=== PATIENT | male | born 1930 | race Caucasian/White ===

== ENCOUNTER 2018-02-21 11:13 | Emergency (ER) | payer OTHER, MEDICARE ==
[2018-02-21] MEDS ORDERED: NS 0.9% 1000 ML* 1,000 ML IV ONE (11:22)
--- NOTE | 2018-02-21 11:29 | UC ---
HPI Febrile Illness - HPI Summary HPI Summary: This patient is a 87 year old M presenting to [facility] from [facility] with a chief complaint of febrile illness for the last 2 days. The patient rates the pain 6/10 in severity. Symptoms alleviated by tylenol, pt took some at 0900. Patient reports trouble urinating, dysuria, and fatigue. Patient denies LE edema, n/v/d, SOB, ABD pain, back pain, and CP. No hx pyelonephritis. 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 There is a cost concern and they declined EMS transport. - History of Current Complaint Chief Complaint: UCGU Time Seen by Provider: 02/21/18 11:20 Hx Obtained From: Patient Onset/Duration: Still Present Timing: Constant Initial Severity: Moderate Current Severity: Moderate Pain Intensity: 6 Pain Scale Used: 0-10 Numeric Alleviating Factors: OTC Medicine Associated Signs and Symptoms: Other: - dysuria and fatigue - Allergy/Home Medications Allergies/Adverse Reactions: Allergies Allergy/AdvReac Type Severity Reaction Status Date / Time No Known Allergies Allergy Verified 02/21/18 11:31 Home Medications: Home Medications Acetaminophen TAB* [Tylenol TAB*] 650 mg PO Q4H PRN 02/21/18 [History Confirmed 02/21/18] Cyanocobalamin TAB* [Vitamin B12 TAB*] 1,000 mcg PO DAILY 02/21/18 [History Confirmed 02/21/18] Mirtazapine TAB* [Remeron TAB*] 30 mg PO BEDTIME 02/21/18 [History Confirmed ] OLANzapine TAB* [Zyprexa 5 MG TAB*] 5 mg PO BEDTIME 02/21/18 [History Confirmed 02/21/18] Trospium (NF) [Sanctura (NF)] 20 mg PO BID 02/21/18 [History Confirmed 02/21/18] PMH/Surg Hx/FS Hx/Imm Hx Cardiovascular History: Hypertension Other History Of: Negative For: HIV - Family History Known Family History: Positive: Hypertension - Social History Lives: Assisted Living Alcohol Use: None Substance Use Type: None Smoking Status (MU): Never Smoked Tobacco Review of Systems Constitutional: Fever, Fatigue Genitourinary: Dysuria, Other - trouble urinating All Other Systems Reviewed And Are Negative: Yes Physical Exam - Summary Physical Exam Summary: Appearance: Well appearing, no pain distress, gait is assisted Skin: hot and dry Head/face: normal Eyes: EOMI, AMBER ENT: mucous membranes moist Neck: supple, non-tender Respiratory: lung sounds are distant Cardiovascular: RRR, pulses symmetrical Abdomen: non-tender, soft Bowel Sounds: present Musculoskeletal: normal, strength/ROM intact, tremor in the LUE Neuro: normal, sensory motor intact, A&Ox3 Triage Information Reviewed: Yes Vital Signs Reviewed: Yes Course/Dx - Course Course Of Treatment: Patient experiencing fever up to 103.5, weakness, fatigue as well as urinary symptoms with history of urinary stricture. Discussed the case with the ER physician Dr. Bland who accepts the patient to the ER. The family wishes to transport him by private vehicle. The vehicle was brought to the door and the patient was assisted into the vehicle. - Febrile Illness Differential Diagnoses: Other: - UTI,sepsis - Diagnoses Clinic Provider Diagnoses: UTI and Fever - Provider Notifications Discussed Patient Care With: Gosia Bland Time Discussed With Above Provider: 11:31 Instructed by Provider To: Other - I informed Dr. Bland of the incoming patient. Discharge - Sign-Out/Discharge Documenting (check all that apply): Patient Departure All imaging exams completed and their final reports reviewed: No Studies - Discharge Plan Condition: Fair Disposition: HOME-RECOMMEND TO ED Patient Education Materials: Urinary Tract Infection in Men (ED) Referrals: Yaritza Casillas MD [Primary Care Provider] - Additional Instructions: Go directly to the ER for care now. - Billing Disposition and Condition Condition: FAIR Disposition: Home-Recommend to ED - Attestation Statements Document Initiated by Noni: Yes Documenting Scribe: Jermaine Lee Provider For Whom Noni is Documenting (Include Credential): Miguel Coelho MD Scribe Attestation: Jermaine Zambrano, scribed for Miguel Coelho MD on 02/21/18 at 1148. Scribe Documentation Reviewed: Yes Provider Attestation: The documentation as recorded by the Jermaine varghese accurately reflects the service I personally performed and the decisions made by me, Miguel Coelho MD
[2018-02-21 11:31] VITALS: BP 125/66
== END 2018-02-21 11:35 | disposition home health service (06) ==
LOC: UCEAST 11:13
DX: N39.0 Urinary tract infection, site not specified (principal); R50.9 Fever, unspecified
CPT/HCPCS: 99202; G0463

== ENCOUNTER 2018-02-21 11:59 | Emergency (ER) | payer MEDICARE, OTHER ==
[2018-02-21 13:05] LABS: ABS Basophils 0 10^3/ul (0-0.2); ABS Eosinophils 0 10^3/ul (0-0.6); ABS Lymphocytes 0.5 10^3/ul (1.0-4.8); ABS Monocytes 0.6 10^3/ul (0-0.8); ABS Neutrophils 12.1 10^3/ul (1.5-7.7); ABS Nucleated RBC 0 10^3/ul; Eosinophil % 0.1 % (0-6); Hematocrit 41 % (42-52); Hemoglobin 13.7 g/dl (14.0-18.0); Lymphocyte % 3.6 % (25-47); Mean Corpuscular HGB Conc 33 g/dl (31-36); Mean Corpuscular Hemoglobin 30 pg (27-31); Mean Corpuscular Volume 90 fL (80-94); Mean Platelet Volume 8.2 um3 (7.4-10.4); Nucleated Red Blood Cells % 0; Platelet Count 183 10^3/ul (150-450); Red Blood Count 4.59 10^6/ul (4.00-5.40); Red Cell Distribution Width 13 % (10.5-15); White Blood Count 13.2 10^3/ul (3.5-10.8)
[2018-02-21 13:14] LABS: INR 0.94 (0.77-1.02)
[2018-02-21 13:27] LABS: EGFR Non-African American 69.7 (>60)
--- NOTE | 2018-02-21 14:44 | RAD ---
INDICATION: Fever COMPARISON: None. TECHNIQUE: Single AP portable view of the chest was obtained. FINDINGS: Image quality is compromised due to the relative inferiority of a portable chest x-ray. The heart and mediastinum exhibit normal size and contour. The lungs are grossly clear. There is no evidence of a large pleural effusion. Visualized bones are normal for the patient's age. IMPRESSION: No radiographic evidence for acute cardiopulmonary abnormality on this portable chest x-ray.
--- NOTE | 2018-02-21 15:07 | ED ---
GI/ HPI - HPI Summary HPI Summary: This patient is an 87 year old M presenting to [facility] accompanied by family with a chief complaint of difficulty urinating that began 3 days ago. The patient rates the pain 0/10 in severity. Symptoms aggravated by nothing. Symptoms alleviated by nothing. Patient reports fever. Patient denies vomiting, CP, and dysuria. - History of Current Complaint Chief Complaint: EDUrogenitalProblems Time Seen by Provider: 02/21/18 12:11 Stated Complaint: UTI Hx Obtained From: Patient Onset/Duration: Started Days Ago, Atraumatic, Still Present Timing: Constant Severity: Mild Current Severity: Mild Pain Intensity: 0 Location of Pain: None Associated Signs and Symptoms: Positive: Fever. Negative: Vomiting, Dysuria, Chest Pain Aggravating Factor(s): Nothing Alleviating Factor(s): Nothing - Allergy/Home Medications Allergies/Adverse Reactions: Allergies Allergy/AdvReac Type Severity Reaction Status Date / Time No Known Allergies Allergy Verified 02/21/18 12:07 PMH/Surg Hx/FS Hx/Imm Hx Previously Healthy: Yes Opthamlomology History: Denies: Hx Legally Blind EENT History: Denies: Hx Deafness - Surgical History Surgery Procedure, Year, and Place: urinary stricture dilation Hx Anesthesia Reactions: No Infectious Disease History: No Infectious Disease History: Denies: Traveled Outside the [place] in Last 30 Days - Family History Known Family History: Positive: Hypertension - Social History Occupation: Unemployed Lives: Assisted Living Alcohol Use: None Hx Substance Use: No Substance Use Type: Reports: None Hx Tobacco Use: No Smoking Status (MU): Never Smoked Tobacco Review of Systems Positive: Fever Negative: Chest Pain Negative: Vomiting Genitourinary: Other - Positive inability to urinate Negative: dysuria All Other Systems Reviewed And Are Negative: Yes Physical Exam - Summary Physical Exam Summary: GENERAL: Patient is a well-developed and nourished M who is lying comfortable in the stretcher. Patient is not in any acute respiratory distress. HEAD AND FACE: Normocephalic EYES: PERRLA, EOMI x 2. EARS: Hearing grossly intact. MOUTH: Oropharynx within normal limits. NECK: Supple, trachea is midline, no adenopathy, no JVD, no carotid bruit. CHEST: Symmetric, no tenderness at palpation LUNGS: Clear to auscultation bilaterally. No wheezing or crackles. CVS: Regular rate and rhythm, S1 and S2 present, no murmurs or gallops appreciated. ABDOMEN: Soft, non-tender. Bowel sounds are normal. No abdominal abnormal pulsations. EXTREMITIES: Full ROM in all major joints, no edema, no cyanosis or clubbing. NEURO: Alert and oriented x 3. No acute neurological deficits. Speech is normal and follows commands. SKIN: Dry and warm Triage Information Reviewed: Yes Vital Signs On Initial Exam: Initial Vitals Temp Pulse Resp BP Pulse Ox 99.5 F 82 16 96/54 93 02/21/18 12:07 02/21/18 12:07 02/21/18 12:07 02/21/18 12:07 02/21/18 12:07 Vital Signs Reviewed: Yes Diagnostics - Vital Signs Vital Signs Temp Pulse Resp BP Pulse Ox 02/21/18 14:35 99.0 F 02/21/18 14:00 72 16 92/54 97 02/21/18 12:12 97 02/21/18 12:07 99.5 F 82 16 96/54 93 - Laboratory Lab Results: Lab Results 02/21/18 02/21/18 02/21/18 Range/Units 12:57 12:57 12:57 WBC 13.2 H (3.5-10.8) 10^3/ul RBC 4.59 (4.00-5.40) 10^6/ul Hgb 13.7 L (14.0-18.0) g/dl Hct 41 L (42-52) % MCV 90 (80-94) fL MCH 30 (27-31) pg MCHC 33 (31-36) g/dl RDW 13 (10.5-15) % Plt Count 183 (150-450) 10^3/ul MPV 8.2 (7.4-10.4) um3 Neut % (Auto) 91.7 H (38-83) % Lymph % (Auto) 3.6 L (25-47) % Hyde % (Auto) 4.3 (0-7) % Eos % (Auto) 0.1 (0-6) % Baso % (Auto) 0.3 (0-2) % Absolute Neuts (auto) 12.1 H (1.5-7.7) 10^3/ul Absolute Lymphs (auto) 0.5 L (1.0-4.8) 10^3/ul Absolute Monos (auto) 0.6 (0-0.8) 10^3/ul Absolute Eos (auto) 0 (0-0.6) 10^3/ul Absolute Basos (auto) 0 (0-0.2) 10^3/ul Absolute Nucleated RBC 0 10^3/ul Nucleated RBC % 0 ESR 16 (0-40) mm/Hr INR (Anticoag Therapy) 0.94 (0.77-1.02) APTT 37.0 H (26.0-36.3) seconds Sodium 137 (135-145) mmol/L Potassium 4.4 (3.5-5.0) mmol/L Chloride 104 (101-111) mmol/L Carbon Dioxide 25 (22-32) mmol/L Anion Gap 8 (2-11) mmol/L BUN 14 (6-24) mg/dL Creatinine 1.01 (0.67-1.17) mg/dL Est GFR ( Amer) 84.4 (>60) Est GFR (Non-Af Amer) 69.7 (>60) BUN/Creatinine Ratio 13.9 (8-20) Glucose 129 H (70-100) mg/dL Lactic Acid (0.5-2.0) mmol/L Calcium 8.7 (8.6-10.3) mg/dL Total Bilirubin 0.70 (0.2-1.0) mg/dL AST 21 (13-39) U/L ALT 12 (7-52) U/L Alkaline Phosphatase 179 H (34-104) U/L Troponin I 0.01 (<0.04) ng/mL C-Reactive Protein 22.59 H (<8.01) mg/L B-Natriuretic Peptide ( - 100) pg/mL Total Protein 6.4 (6.4-8.9) g/dL Albumin 4.1 (3.2-5.2) g/dL Globulin 2.3 (2-4) g/dL Albumin/Globulin Ratio 1.8 (1-3) 02/21/18 02/21/18 Range/Units 12:57 12:57 WBC (3.5-10.8) 10^3/ul RBC (4.00-5.40) 10^6/ul Hgb (14.0-18.0) g/dl Hct (42-52) % MCV (80-94) fL MCH (27-31) pg MCHC (31-36) g/dl RDW (10.5-15) % Plt Count (150-450) 10^3/ul MPV (7.4-10.4) um3 Neut % (Auto) (38-83) % Lymph % (Auto) (25-47) % Hyde % (Auto) (0-7) % Eos % (Auto) (0-6) % Baso % (Auto) (0-2) % Absolute Neuts (auto) (1.5-7.7) 10^3/ul Absolute Lymphs (auto) (1.0-4.8) 10^3/ul Absolute Monos (auto) (0-0.8) 10^3/ul Absolute Eos (auto) (0-0.6) 10^3/ul Absolute Basos (auto) (0-0.2) 10^3/ul Absolute Nucleated RBC 10^3/ul Nucleated RBC % ESR (0-40) mm/Hr INR (Anticoag Therapy) (0.77-1.02) APTT (26.0-36.3) seconds Sodium (135-145) mmol/L Potassium (3.5-5.0) mmol/L Chloride (101-111) mmol/L Carbon Dioxide (22-32) mmol/L Anion Gap (2-11) mmol/L BUN (6-24) mg/dL Creatinine (0.67-1.17) mg/dL Est GFR ( Amer) (>60) Est GFR (Non-Af Amer) (>60) BUN/Creatinine Ratio (8-20) Glucose (70-100) mg/dL Lactic Acid 0.8 (0.5-2.0) mmol/L Calcium (8.6-10.3) mg/dL Total Bilirubin (0.2-1.0) mg/dL AST (13-39) U/L ALT (7-52) U/L Alkaline Phosphatase (34-104) U/L Troponin I (<0.04) ng/mL C-Reactive Protein (<8.01) mg/L B-Natriuretic Peptide 100 ( - 100) pg/mL Total Protein (6.4-8.9) g/dL Albumin (3.2-5.2) g/dL Globulin (2-4) g/dL Albumin/Globulin Ratio (1-3) Result Diagrams: 02/21/18 12:57 02/21/18 12:57 Lab Statement: Any lab studies that have been ordered have been reviewed, and results considered in the medical decision making process. - Radiology CXR Radiology Interpretation Completed By: Radiologist - CXR reveals, per radiologist, no radiographic evidence for acute cardiopulmonary abnormality on this portable chest x-ray. ED physician has reviewed this radiology report. Re-Evaluation - Re-Evaluation First Eval Re-Evaluation Time: 17:15 Change: Unchanged Comment: Pt states he is still unable to urinate GIGU Course/Dx - Course Course Of Treatment: This patient is an 87 year old M presenting to [facility] accompanied by family with a chief complaint of difficulty urinating that began 3 days ago. Physical Exam Findings: Nml. CXR reveals, per radiologist, no radiographic evidence for acute cardiopulmonary abnormality on this portable chest x-ray. Blood work and UA obtained. Labs remarkable for leukocytosis and UA shows hematuria. In the ED course the patient was given fluids and rocephein. CT scan shows right sided hydronephrosis. Patient will most likely need IR and urological intervention in the context of fever, elevated white count and hydronephrosis. Patient will be transferred to [facility] since no urologist communications department chair. Results and plan of care discussed with patient. Patient stable upon transfer. - Diagnoses Provider Diagnoses: Difficulty urinating, Hematuria, Hydronephrosis Discharge - Sign-Out/Discharge Documenting (check all that apply): Patient Departure - Discharge Plan Condition: Stable Disposition: TRANS HIGHER LVL OF CARE FAC Referrals: Yaritza Casillas MD [Primary Care Provider] - - Billing Disposition and Condition Condition: STABLE Disposition: Trans Higher Lvl of Care Fac - Attestation Statements Document Initiated by Scribe: Yes Documenting Scribe: Phuong Nielsen Provider For Whom Noni is Documenting (Include Credential): Gosia Bland MD Scribe Attestation: Phuong Zambrano, scribed for Gosia Bland MD on 02/21/18 at 1944. Scribe Documentation Reviewed: Yes Provider Attestation: The documentation as recorded by the Phuong varghese accurately reflects the service I personally performed and the decisions made by me, Gosia Bland MD
[2018-02-21] MEDS ORDERED: NS 0.9% 1000 ML* 1,000 ML IV ONE (15:08)
[2018-02-21 15:52] LABS: Urine Appearance Clear; Urine Blood 1+ (Negative); Urine Color Yellow; Urine Ketones Trace (Negative); Urine Protein Negative (Negative); Urine Red Blood Cell 3+(>10/hpf) (Absent); Urine Specific Gravity 1.014 (1.010-1.030); Urine Urobilinogen Negative (Negative); Urine White Blood Cell Trace(0-5/hpf) (Absent)
--- NOTE | 2018-02-21 19:03 | RAD ---
CLINICAL HISTORY: Fever and difficulty urinating COMPARISON: None TECHNIQUE: Noncontrast CT examination of the abdomen and pelvis from the lung bases through the initial tuberosities. FINDINGS: VISUALIZED LUNG BASES: There are hypoventilatory changes of the bilateral lung bases more severe on the right and the left. ABDOMEN AND PELVIS: Evaluation of the solid organs and vasculature is limited without intravenous contrast. The liver, spleen, pancreas and adrenal glands are grossly normal in appearance. The gallbladder is normal. There is a mild degree of right-sided hydronephrosis. The right ureter is dilated up to 1.7 cm in diameter. More distally the right ureter is nondilated. No calcifications are identified in either collecting system, ureter or the urinary bladder. The prostate measures 4.9 x 5.2 cm in the axial plane and up to 5.8 cm in the cephalocaudal dimension. The prostate is exhibiting asymmetric compression on the base of the urinary bladder towards the right. Evaluation of the gastrointestinal tract is limited without oral contrast. The small and large bowel are not distended.The partially gas-filled appendix measures 7 mm in diameter (coronal image 32). There are distal colonic diverticula but no definite inflammatory change of the distal colon characteristic of diverticulitis. There is no gross retroperitoneal or mesenteric lymphadenopathy. There is advanced tortuosity of the abdominal aorta and iliac arteries. There is moderate calcified atherosclerosis of the abdominal aorta. There is aneurysmal dilatation of the left common iliac artery measuring 1.9 cm in diameter while the right common iliac artery measures 1.6 cm in diameter. Throughout the bones there are innumerable subcentimeter hypoattenuating foci. Advanced degenerative changes of the spine includes SAB curvature scoliosis and marginal osteophyte formation. IMPRESSION: 1. There is asymmetric enlargement of the prostate gland extending into the right side of the urinary bladder with subsequent right-sided hydroureter nephrosis. 2. There are widespread subcentimeter hypoattenuating foci throughout the visualized bones which could be seen in the setting of metastatic disease or parathyroid abnormality. 3. 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
[2018-02-21] MEDS ORDERED: cefTRIAXone(*) 1 GM in NS 0.9% 50 ML* 50 ML IVPB ONE (19:27)
[2018-02-21] MEDS ORDERED: cefTRIAXone(*) 1 GM ADVAN/BAG ONE (20:43)
[2018-02-21 21:48] VITALS: BP 116/65
== END 2018-02-21 21:58 | disposition short-term general hospital (02) ==
LOC: ED 11:59
DX: R39.198 Other difficulties with micturition (principal); N13.30 Unspecified hydronephrosis; R31.9 Hematuria, unspecified; R50.9 Fever, unspecified
CPT/HCPCS: 36415; 71045; 74176; 80053; 81003; 81015; 83605; 83880; 84153; 84484; 85025; 85610; 85652; 85730; 86140; 87040; 87086; 96365; 99284; G0103; J0696

== ENCOUNTER 2018-04-07 02:58 | Emergency (ER) | payer MEDICARE, OTHER ==
--- NOTE | 2018-04-07 03:17 | ED ---
GI/ HPI - HPI Summary HPI Summary: This patient is an 87 year old M presenting to [facility] accompanied by his friend with a chief complaint of hematuria in his urine bag since 00:00. The patient rates the pain 0/10 in severity. Symptoms aggravated by nothing. Symptoms alleviated by nothing. Patients friend notes the patient had the Barker catheter first placed 5 weeks ago and has it changed last 10 days. Patient has been previously diagnosed with prostate CA and enlarged prostate. - History of Current Complaint Time Seen by Provider: 04/07/18 03:04 Stated Complaint: BLOOD IN URINE Hx Obtained From: Patient Onset/Duration: Started Hours Ago, Atraumatic Timing: Intermittent Current Severity: None Pain Intensity: 0 Associated Signs and Symptoms: Positive: Hematuria Aggravating Factor(s): Nothing Alleviating Factor(s): Nothing - Allergy/Home Medications Allergies/Adverse Reactions: Allergies Allergy/AdvReac Type Severity Reaction Status Date / Time No Known Allergies Allergy Verified 02/21/18 12:07 PMH/Surg Hx/FS Hx/Imm Hx Sensory History: Denies: Hx Legally Blind, Hx Deafness Opthamlomology History: Denies: Hx Legally Blind EENT History: Denies: Hx Deafness - Cancer History Cancer Type, Location and Year: PROSTATE CA - Surgical History Surgery Procedure, Year, and Place: urinary stricture dilation Hx Anesthesia Reactions: No Infectious Disease History: No Infectious Disease History: Denies: Traveled Outside the [place] in Last 30 Days - Family History Known Family History: Positive: Hypertension - Social History Alcohol Use: None Hx Substance Use: No Substance Use Type: Reports: None Hx Tobacco Use: No Smoking Status (MU): Never Smoked Tobacco Review of Systems Negative: Fever Negative: Epistaxis Negative: Cough Negative: Vomiting Positive: hematuria All Other Systems Reviewed And Are Negative: Yes Physical Exam - Summary Physical Exam Summary: VITAL SIGNS: Reviewed. GENERAL: Patient is an elderly MALE who is lying comfortable in the stretcher. Patient is not in any acute respiratory distress. HEAD AND FACE: No signs of trauma. No ecchymosis, hematomas or skull depressions. No sinus tenderness. EYES: PERRLA, EOMI x 2, No injected conjunctiva, no nystagmus. EARS: Hearing grossly intact. Ear canals and tympanic membranes are within normal limits. MOUTH: Oropharynx within normal limits. NECK: Supple, trachea is midline, no adenopathy, no JVD, no carotid bruit, no c- spine tenderness, neck with full ROM. CHEST: Symmetric, no tenderness at palpation LUNGS: Clear to auscultation bilaterally. No wheezing or crackles. CVS: Regular rate and rhythm, S1 and S2 present, no murmurs or gallops appreciated. ABDOMEN: Soft, non-tender. No signs of distention. No rebound no guarding, and no masses palpated. Bowel sounds are normal. EXTREMITIES: FROM in all major joints, no edema, no cyanosis or clubbing. NEURO: Alert and oriented x 3. No acute neurological deficits. Speech is normal and follows commands. SKIN: Dry and warm : Barker catheter in place. Bloody urine in urine bag. Triage Information Reviewed: Yes Vital Signs On Initial Exam: Initial Vitals Temp Pulse Resp BP Pulse Ox 98.4 F 59 14 154/81 96 04/07/18 03:06 04/07/18 03:06 04/07/18 03:06 04/07/18 03:06 04/07/18 03:06 Vital Signs Reviewed: Yes Diagnostics - Vital Signs Vital Signs Temp Pulse Resp BP Pulse Ox 04/07/18 03:06 98.4 F 59 14 154/81 96 - Laboratory Lab Statement: Any lab studies that have been ordered have been reviewed, and results considered in the medical decision making process. GIGU Course/Dx - Course Course Of Treatment: This patient is an 87 year old M with hx of prostate CA reporting hematuria in his urine bag since 00:00. Patient had the Barker catheter placed 5 weeks ago and last changed 10 days. Test results with no significant abnormalities. Urine cleared with mild irrigation. Patient will be treated with Levaquin for UTI and will be discharged home with follow up from Dr. Sylvester. In the ED course the patient was given Levaquin. The patient is agreeable with this plan. - Diagnoses Provider Diagnoses: UTI (urinary tract infection), Hematuria Discharge - Sign-Out/Discharge Documenting (check all that apply): Patient Departure - discharge home - Discharge Plan Condition: Stable Disposition: HOME Prescriptions: Levofloxacin TAB* [Levaquin TAB*] 500 mg PO DAILY #7 tab Patient Education Materials: Urinary Tract Infection in Men (ED), Hematuria (ED ) Referrals: Yaritza Casillas MD [Primary Care Provider] - Alex Sylvester MD [Medical Doctor] - 2 Days Additional Instructions: Follow up with Dr. Sylvester, urologist, in 2-3 days. Return to the emergency department with any new or worsening symptoms. - Attestation Statements Document Initiated by Scribe: Yes Documenting Scribe: Blanche Gurrola Provider For Whom Scribe is Documenting (Include Credential): Odell Garcia MD Scribe Attestation: IBlanche, scribed for Odell Garcia MD on 04/07/18 at 0412.
[2018-04-07 04:07] LABS: Urine Appearance Turbid; Urine Blood 2+ (Negative); Urine Color Red; Urine Ketones Negative (Negative); Urine Protein 2+(100 mg/dL) (Negative); Urine Red Blood Cell 3+(>10/hpf) (Absent); Urine Specific Gravity 1.015 (1.010-1.030); Urine Urobilinogen Negative (Negative); Urine White Blood Cell 1+(6-10/hpf) (Absent)
[2018-04-07] MEDS ORDERED: Levofloxacin TAB* 500 MG PO ONE (04:10)
[2018-04-07 04:55] VITALS: BP 123/69
--- NOTE | 2018-04-10 02:18 | PN ---
Progress Note - Progress Note Date of Service: 04/07/18 Note: Patient's urine culture preliminary grew pseudomonas aeruginosa 100,000 Patient was placed on Levaquin prior to discharge We will await final culture sensitivities at this time
--- NOTE | 2018-04-10 18:30 | ED ---
Progress - Progress Note Progress Note: levofloxacin effective. No further treatment at this time Course/Dx - Course Course Of Treatment: This patient is an 87 year old M with hx of prostate CA reporting hematuria in his urine bag since 00:00. Patient had the Barker catheter placed 5 weeks ago and last changed 10 days. Test results with no significant abnormalities. Urine cleared with mild irrigation. Patient will be treated with Levaquin for UTI and will be discharged home with follow up from Dr. Sylvester. In the ED course the patient was given Levaquin. The patient is agreeable with this plan. - Diagnoses Provider Diagnoses: UTI (urinary tract infection), Hematuria Discharge - Sign-Out/Discharge Documenting (check all that apply): Post-Discharge Follow Up - Discharge Plan Condition: Stable Disposition: HOME Prescriptions: Levofloxacin TAB* [Levaquin TAB*] 500 mg PO DAILY #7 tab Patient Education Materials: Urinary Tract Infection in Men (ED), Hematuria (ED ) Referrals: Yaritza Casillas MD [Primary Care Provider] - Alex Sylvester MD [Medical Doctor] - 2 Days Additional Instructions: Follow up with Dr. Sylvester, urologist, in 2-3 days. Return to the emergency department with any new or worsening symptoms. - Billing Disposition and Condition Condition: STABLE Disposition: Home
== END 2018-04-07 04:54 | disposition home or self-care (01) ==
LOC: ED 02:58
DX: N39.0 Urinary tract infection, site not specified (principal); B96.5 Pseudomonas (aeruginosa) (mallei) (pseudomallei) as the cause of diseases classified elsewhere; R31.9 Hematuria, unspecified; C61 Malignant neoplasm of prostate
CPT/HCPCS: 81003; 81015; 87077; 87086; 87186; 99282

== ENCOUNTER 2019-07-09 10:14 | Inpatient (IN) | payer MEDICARE ==
--- NOTE | 2019-07-09 10:29 | ED ---
Lower Extremity - HPI Summary HPI Summary: Pt is an 88 y/o M presenting to the ED with a chief complaint of L hip pain initially onset this morning. He lives at [place] where a requirement is to be able to ambulate, and he is currently unable to secondary to pain. He is unsure if he fell, as he cant remember. He denies other sx, including shortness of breath. - History of Current Complaint Chief Complaint: EDHipPelvisInjury Stated Complaint: GENERAL ILLNESS Time Seen by Provider: 07/09/19 10:15 Hx Obtained From: Patient Mechanism Of Injury: Unknown Onset of Pain: Hours Onset/Duration: Still Present Severity Initially: Moderate Severity Currently: Moderate Pain Intensity: 5 Pain Scale Used: 0-10 Numeric Timing: Constant, Lasting Hours Location: Is Discrete @ - R hip Associated Signs And Symptoms: Positive: Negative Aggravating Factor(s): Movement Alleviating Factor(s): Nothing Able to Bear Weight: No - Allergies/Home Medications Allergies/Adverse Reactions: Allergies Allergy/AdvReac Type Severity Reaction Status Date / Time No Known Allergies Allergy Verified 02/21/18 12:07 Home Medications: Home Medications Bicalutamide 50 mg PO DAILY 07/09/19 [History Confirmed 07/09/19] Escitalopram * [Lexapro 5 mg (NF)] 5 mg PO DAILY 07/09/19 [History Confirmed 01/18] Melatonin [Meladox] 3 mg PO BEDTIME 07/09/19 [History Confirmed 07/09/19] PMH/Surg Hx/FS Hx/Imm Hx Previously Healthy: Yes Endocrine/Hematology History: Denies: Hx Diabetes Sensory History: Denies: Hx Legally Blind, Hx Deafness Opthamlomology History: Denies: Hx Legally Blind - Cancer History Cancer Type, Location and Year: PROSTATE CA - Surgical History Surgery Procedure, Year, and Place: urinary stricture dilation Hx Anesthesia Reactions: No Infectious Disease History: No Infectious Disease History: Denies: Traveled Outside the [place] in Last 30 Days - Family History Known Family History: Positive: Hypertension - Social History Alcohol Use: None Hx Substance Use: No Substance Use Type: Reports: None Hx Tobacco Use: No Smoking Status (MU): Never Smoked Tobacco Review of Systems Negative: Shortness Of Breath Positive: Arthralgia, Decreased ROM All Other Systems Reviewed And Are Negative: Yes Physical Exam - Summary Physical Exam Summary: VITAL SIGNS: Reviewed. GENERAL: Patient is an elderly male who is lying comfortable in the stretcher. Patient is not in any acute respiratory distress. HEAD AND FACE: No signs of trauma. No ecchymosis, hematomas or skull depressions. No sinus tenderness. EYES: PERRLA, EOMI x 2, No injected conjunctiva, no nystagmus. EARS: Hearing grossly intact. Ear canals and tympanic membranes are within normal limits. MOUTH: Oropharynx within normal limits. NECK: Supple, trachea is midline, no adenopathy, no JVD, no carotid bruit, no c- spine tenderness, neck with full ROM. CHEST: Symmetric, no tenderness at palpation. LUNGS: Clear to auscultation bilaterally. No wheezing or crackles. CVS: Regular rate and rhythm, S1 and S2 present, no murmurs or gallops appreciated. ABDOMEN: Soft, non-tender. No signs of distention. No rebound, no guarding, and no masses palpated. Bowel sounds are normal. EXTREMITIES: FROM in all major joints, no edema, no cyanosis or clubbing. NEURO: Alert and oriented x 3. No acute neurological deficits. Speech is normal and follows commands. SKIN: Dry and warm, pale Triage Information Reviewed: Yes Vital Signs On Initial Exam: Initial Vitals Temp Pulse Resp BP Pulse Ox 97.2 F 87 18 127/82 91 07/09/19 10:18 07/09/19 10:18 07/09/19 10:18 07/09/19 10:18 07/09/19 10:18 Vital Signs Reviewed: Yes Procedures - Sedation Patient Received Moderate/Deep Sedation with Procedure: No Diagnostics - Vital Signs Vital Signs Temp Pulse Resp BP Pulse Ox 07/09/19 10:18 97.2 F 87 18 127/82 91 - Laboratory Result Diagrams: 07/09/19 10:35 07/09/19 10:35 Lab Statement: Any lab studies that have been ordered have been reviewed, and results considered in the medical decision making process. - Radiology Hip/Pelvis XR Radiology Interpretation Completed By: Radiologist Summary of Radiographic Findings: 1. TRANSVERSE, DISPLACED, ANGULATED FRACTURE OF THE LEFT FEMORAL NECK. 2. POSSIBLE OSSEOUS METASTATIC DISEASE. ED physician has reviewed this report. Lower Extremity Course/Dx - Course Assessment/Plan: Pt is an 88 y/o M presenting to the ED with a chief complaint of L hip pain initially onset this morning. He lives at [place] where a requirement is to be able to ambulate, and he is currently unable to secondary to pain. He is unsure if he fell, as he cant remember. He denies other sx, including shortness of breath. In the ED course the patient was placed in a aerial crop duster, IV access was obtained. Blood test w/o a significant abnormality except for slight anemia with hemoglobin 9.5 and hematocrit 28, ESR 70, BUN is 25, glucose 197, lactic acid is 2.6, CRP is 100 and AST is 56. Patient was given IV fluids for dehydration. In the physical exam the patient has decreased range of motion of the left hip and tenderness to palpation. The patient doesnt have any shortening of the left lower extremity or any deformity. X-ray of the left hip and pelvis impression: Transverse and displaced angulated fracture of the left femoral neck. Possible osseous metastatic disease. I discussed the case with Dr. Will from orthopedics and he will consult for this patient. I discussed the case with Dr. Billings from the hospitalist services and she accepted the patient for admission. - Diagnoses Differential Diagnosis/HQI/PQRI: Positive: Arthritis, Bursitis, Fracture (Closed ), Sprain, Strain Provider Diagnoses: Hip fracture, Dehydration Discharge ED - Sign-Out/Discharge Documenting (check all that apply): Patient Departure - Discharge Plan Condition: Stable Disposition: ADMITTED TO [facility] - Billing Disposition and Condition Condition: STABLE Disposition: Admitted to [facility] - Attestation Statements Document Initiated by Noni: Yes Documenting Scribe: Sarah Wan Provider For Whom Noni is Documenting (Include Credential): Roly Segura MD. Scribe Attestation: Sarah Zambrano, scribed for Roly Segura MD. on 07/09/19 at 1852. Scribe Documentation Reviewed: Yes Provider Attestation: The documentation as recorded by the Sarah varghese accurately reflects the service I personally performed and the decisions made by me, Roly Segura MD. Status of Scribe Document: Viewed Consult Consult: 1203 - I spoke with Dr. Billings about the pt's present condition who will come to the ED to evaluate the pt for admission. 1206 - I spoke with Dr. Will who will consult with the pt.
[2019-07-09 10:44] LABS: Hematocrit 28 % (42-52); Hemoglobin 9.5 g/dL (14.0-18.0); Mean Corpuscular HGB Conc 34 g/dL (31-36); Mean Corpuscular Hemoglobin 32 pg (27-31); Mean Corpuscular Volume 94 fL (80-94); Platelet Count 168 10^3/uL (150-450); Red Blood Count 2.99 10^6 /uL (4.18-5.48); Red Cell Distribution Width 20 % (10-15); White Blood Count 9.5 10^3/uL (3.5-10.8)
[2019-07-09 11:00] LABS: C Reactive Protein 100.59 mg/L (<8.01)
[2019-07-09 11:59] LABS: Albumin 3.8 g/dL (3.2-5.2); Albumin/Globulin Ratio 1.5 (1-3); Calcium 8.4 mg/dL (8.6-10.3); EGFR African American 81.4 (>60); EGFR Non-African American 67.2 (>60); Globulin 2.5 g/dL (2-4); Polychromasia 2+; Potassium 4.2 mmol/L (3.5-5.0); Total Bilirubin 0.8 mg/dL (0.2-1.0); Total Protein 6.3 g/dL (6.4-8.9)
[2019-07-09 12:00] LABS: ABS Lymphocytes 0.9 10^3/ul (1.0-4.8); ABS Monocytes 0.6 10^3/ul (0-0.8); ABS Neutrophils 7.9 10^3/ul (1.5-7.7); Eosinophil % 0.2 %; Lymphocyte % 9.3 %; Nucleated Red Blood Cells % 0.2
[2019-07-09 12:08] LABS: Erythrocyte Sed Rate 70 mm/Hr (0-19)
[2019-07-09] MEDS ORDERED: NS 0.9% 1000 ML** 1,000 ML IV ONE (12:23)
[2019-07-09] MEDS ORDERED: oxyCODONE/Acetamin 5/325 MG* TAB PO PRN (12:51)
[2019-07-09] MEDS ORDERED: NS 0.9% 1000 ML** 1,000 ML IV SCH ×2 (13:00→18:15)
[2019-07-09] MEDS ORDERED: Senna TAB 8.6 mg* TAB PO PRN (13:04)
[2019-07-09] MEDS ORDERED: Polyethylene Glycol 3350* 17 GM PACKET PO PRN (13:05)
--- NOTE | 2019-07-09 14:51 | HP ---
CC: Dr. Casillas * [facility] MEDICINE HISTORY AND PHYSICAL: DATE OF ADMISSION: 07/09/19 PRIMARY CARE PHYSICIAN: Dr. Casillas. ATTENDING PHYSICIAN: Dr. Elsa Billings * (dictation provided by Hope Nathan NP ). CHIEF COMPLAINT: Left hip pain. HISTORY OF PRESENT ILLNESS: Mr. Bowers is an 88-year-old male with a past medical history of dementia, schizoid personality disorder, anxiety, and prostate cancer, who presents to the hospital today from [place] with concern for 10 days of pain in left lower extremity, now with inability to ambulate. Mr. Bowers has dementia with no clear recollection of recent events. The HPI is obtained from his power of claim attorney Adrián Boyle and from the record from [place]. Per the report, Mr. Bowers has been complaining of left hip pain for about 10 days. He was given a walker to use and was doing well with that, walking back and forth to dining [employer]onez at [place]. The patient was still able to ambulate as of yesterday. As of today, he was not able to bear weight on the left leg and was placed into a wheelchair. However, he was evidencing pain even with attempting to push himself in the wheelchair with his feet and therefore he was brought to the emergency room for evaluation. His power of claim attorney is here with him today at the bedside, states otherwise he is at baseline in terms of his mentation and there has been no other reported complaints from Mr. Bowers or reported to the power of claim attorney by the staff at [place]. Mr. Bowers denies falling and there is no record of him falling at [place]. Mr. Bowers does have a history of prostate cancer, for which he is following with Dr. Sylvester and there has been some concern for rising PSA and question of metastatic disease. Mr. Boyle states that there is no intention of doing any aggressive treatment for Mr. Bowers for prostate cancer. In the emergency room, Mr. Bowers had a hip x-ray that showed concern for a fracture to the left hip described as "transverse displaced angulated fracture. " There is also note of possible osseous metastatic disease. Dr. Will was called regarding the potential for surgical intervention. The patient's labs are significant for a slightly elevated lactic acidosis of 2.6. He also has an elevated ESR and CRP at 70 and 100 respectively. His alkaline phosphatase is elevated at 2877, but his AST and ALT are essentially normal. He shows an anemia which is slightly worse than baseline with hemoglobin of 9.5. His vital signs are stable. He is afebrile. He has no leukocytosis. PAST MEDICAL HISTORY: 1. Dementia. 2. History of prostate cancer. 3. Schizoid personality disorder. 4. Generalized anxiety disorder. 5. Vitamin B deficiency. 6. Insomnia. OUTPATIENT MEDICATIONS: 1. Melatonin 3 mg p.o. at bedtime. 2. Escitalopram 5 mg p.o. daily. 3. Casodex 50 mg p.o. daily. 4. Tylenol p.r.n. 5. Olanzapine 5 mg p.o. at bedtime. 6. Mirtazapine 30 mg p.o. at bedtime. 7. Cyanocobalamin 1000 mcg p.o. daily. ALLERGIES: No known drug allergies. FAMILY HISTORY: Unobtainable from the patient today, he has memory problems. SOCIAL HISTORY: There is no report anywhere in the record of alcohol, tobacco, or drug use. The patient lives at [place] and his friend and power of claim attorney is Adrián Boyle who is at the bedside today. REVIEW OF SYSTEMS: A 14-point review of systems was completed with Mr. Bowers and all those not mentioned above were negative, although of course his memory is impaired. PHYSICAL EXAMINATION GENERAL: Mr. Bowers is sitting on the bed with his friend Adrián at the bedside. He is in no acute distress. VITAL SIGNS: Temperature 97.2, pulse rate 84, respiratory rate 18, O2 saturation 92% on room air, blood pressure 130/76. LUNGS: Clear to auscultation bilaterally with no accessory muscle use and good aeration. HEART: S1, S2. No murmur, rub, or gallop and irregular. ABDOMEN: Soft, nontender with bowel sounds positive x4. EXTREMITIES: No cyanosis or edema. NEURO: He is alert. He is oriented to himself. He converses pleasantly, but is unable to offer any reliable information and is aware of his memory loss. He moves all extremities equally except for that left leg which is limited by pain. His face is symmetrical. The extraocular movements are intact. SKIN: Intact. DIAGNOSTIC STUDIES/LAB DATA: WBC 9.5, hemoglobin 9.5, hematocrit 28, platelet count 168, ESR 70. Sodium 135, potassium 4.2, chloride 101, serum bicarbonate 24, BUN 25, creatinine 1.04, glucose 197, lactic acid 2.6, calcium 8.4. AST 56 , ALT 22, alk phos 2877, CRP 100.59. The hip x-rays as read above and there is an EKG which shows a sinus rhythm with multiple PACs and PVCs. There is no evidence of ischemia there. ASSESSMENT AND PLAN: Mr. Bowers is an 88-year-old male with past medical history of dementia from the memory care unit at [place], as well as a history for prostate cancer with concern for progression and possible metastatic disease, who presents to the hospital with concern for 10 days of left leg pain, found to have a left hip fracture. Our plans are for inpatient admission as I expect his length of stay to be greater than 2 days for the followin. Left hip pain: The patient has been found to have a left hip fracture. I did review the x-ray with Dr. Will here in the ED today. Dr. Will does not note from the x-ray that there seems to be any significant metastatic or osseous disease where the fracture is located, but primarily seems to be present in the symphysis pubis. Dr. Will feels that surgical intervention would be effective and has offered that to the patient and his power of claim attorney with plans to anticipate going to OR on Thursday. The patient has no known history of cardiac disease or pulmonary disease. He was ambulatory, though not obtaining an activity level greater than 4 METS at [place] prior to developing left hip pain. His EKG shows no overt evidence of ischemia. He has no risk factors noted on the RCRI risk index calculator and therefore would have a 0.4% risk of potential cardiac problem in an around at the time of surgery. He is medically optimized to proceed with surgery. He does have multiple laboratory abnormalities including an elevated ESR, CRP, alk phos. I think all this is related to prostate cancer. In terms of evaluation for his elevated CRP and ESR, we are awaiting urinalysis (nursing staff have been instructed to bladder scan patient if no urine output) and chest x- ray, but the patient has no symptoms to suggest infection. The patient will have pain medications p.r.n. with a bowel regimen. I would also note the patient will need a Snow catheter for surgery and consideration should be given to reaching out to Urology to alert them that snow placement assistance will likely be needed. 2. Elevated ESR and CRP as per above. Again, we are awaiting the urinalysis and chest x-ray. He is afebrile. There is no leukocytosis. These elevations are likely reflective of metastatic prostate cancer. 3. History of prostate cancer. Continue Casodex. 4. History of schizoid personality disorder and anxiety. Continue Lexapro and olanzapine. 5. DVT prophylaxis with heparin subcu. 6. Code status is DNR and MOLST form has been completed. TIME SPENT: Approximately 60 minutes was spent on the admission of this patient , more than half the time was spent with the patient at the bedside reviewing the events leading up to this hospitalization, performing the physical examination, and reviewing the plan of care. HOPE NATHAN NP [id number]/[facility] #: [id number] [place]
[2019-07-09] MEDS: OLANzapine TAB* 5 MG PO SCH (22:34)
[2019-07-09] MEDS: Heparin VIAL(*) 5000 UNITS/ML VIAL (FIVE THOUSAND) SUBCUT SCH (22:35)
[2019-07-09] MEDS: Melatonin 3 MG TAB PO SCH (22:35)
[2019-07-09] MEDS: Mirtazapine TAB* 15 MG PO SCH (22:42)
[2019-07-10 06:10] LABS: ABS Monocytes 0.7 10^3/ul (0-0.8); ABS Neutrophils 6.7 10^3/ul (1.5-7.7); Eosinophil % 0.5 %; Hematocrit 25 % (42-52); Hemoglobin 8.6 g/dL (14.0-18.0); Lymphocyte % 12.3 %; Mean Corpuscular HGB Conc 35 g/dL (31-36); Mean Corpuscular Hemoglobin 32 pg (27-31); Mean Corpuscular Volume 93 fL (80-94); Mean Platelet Volume 6.9 fL (7.4-10.4); Nucleated Red Blood Cells % 0.1; Platelet Count 141 10^3/uL (150-450); Red Blood Count 2.65 10^6 /uL (4.18-5.48); Red Cell Distribution Width 20 % (10-15); White Blood Count 8.4 10^3/uL (3.5-10.8)
[2019-07-10] MEDS: Heparin VIAL(*) 5000 UNITS/ML VIAL (FIVE THOUSAND) SUBCUT SCH ×3 (06:13→20:51)
[2019-07-10 06:22] LABS: Anion Gap 8 mmol/L (2-11); BUN/Creatinine Ratio 26.8 (8-20); Blood Urea Nitrogen 22 mg/dL (6-24); CO2 Carbon Dioxide 24 mmol/L (22-32); Calcium 8.3 mg/dL (8.6-10.3); Chloride 105 mmol/L (101-111); EGFR Non-African American 88.5 (>60); Glucose 124 mg/dL (70-100); Potassium 3.4 mmol/L (3.5-5.0); Sodium 137 mmol/L (135-145)
[2019-07-10] MEDS ORDERED: Potassium Chlor TAB* 20 MEQ TAB.ER PO ONE (07:32)
[2019-07-10 08:36] LABS: % Iron Saturation 11 % (15-55); Iron 33 ug/dL (50-212); Total Iron Binding Capacity 307 mcg/dL (250-450); Transferrin 219 mg/dL (203-362)
[2019-07-10 08:56] LABS: Ferritin 863.9 ng/mL (24-336)
[2019-07-10] MEDS: Escitalopram * 5 MG TAB PO SCH (10:05)
[2019-07-10] MEDS: Docusate CAP* 100 MG PO SCH (10:05)
[2019-07-10] MEDS: BICALUTAMIDE 50 MG PO SCH (10:05)
--- NOTE | 2019-07-10 10:25 | ECHO ---
*[facility]* [place] [address] Fax #: [phone] Transthoracic Echocardiogram Patient: Whit Bowers : 1930 Study Date: 07/10/2019 Age: 88 Gender: M HR: 92 bpm Height: 70 in /177.8 cm BSA: 1.78 m^2 Weight: 136.7 lb /62.1 kg BMI: 19.7 kg/m^2 *Director Of Market Research: Lori Forte [facility] *Referring Physician: * Elsa Billings *Reading Physician: * Richie Root MD Indications: Congestive Heart Failure. History: Dementia, schizoid personality disorder. Conclusions Summary: - Left ventricle: The cavity size is normal. Wall thickness is mildly increased. Systolic function is normal. The estimated ejection fraction is 60-65%. Doppler parameters are consistent with abnormal left ventricular relaxation (grade 1 diastolic dysfunction). - Right atrium: The atrium is moderately dilated. - Mitral valve: There is mild regurgitation. - Tricuspid valve: There is trace to mild regurgitation. - Pericardium, extracardiac: A trace to small pericardial effusion is identified. There is no evidence of hemodynamic compromise. There is a small right pleural effusion and a left pleural effusion. Study data: Transthoracic echocardiogram. Procedure: Transthoracic echocardiography was performed. Image quality was fair. The study was technically limited due to restricted patient mobility. Complete 2D, spectral Doppler, and color flow Doppler. Location: Bedside. Patient status: Inpatient. Patient room number: 349. No prior study is available for comparison. Rhythm: Normal sinus rhythm with PAC's. Findings Left ventricle: The cavity size is normal. Wall thickness is mildly increased. Systolic function is normal. The estimated ejection fraction is 60-65%. Wall motion is normal; there are no regional wall motion abnormalities. Doppler parameters are consistent with abnormal left ventricular relaxation (grade 1 diastolic dysfunction). Right ventricle: The cavity size is normal. Systolic function is normal. Left atrium: The atrium is normal in size. Right atrium: The atrium is moderately dilated. Mitral valve: The leaflets are mildly thickened. There is no evidence of stenosis. There is mild regurgitation. Aortic valve: The valve is trileaflet. The leaflets are mildly thickened. There is no evidence of stenosis. There is no significant regurgitation. Tricuspid valve: The leaflets are normal thickness. There is no evidence of stenosis. There is trace to mild regurgitation. Pulmonic valve: The leaflets are normal thickness. There is no evidence of stenosis. There is trace regurgitation. Pericardium: A trace to small pericardial effusion is identified. There is no evidence of hemodynamic compromise. There is a small right pleural effusion and a left pleural effusion. Pulmonary arteries: Systolic pressure can not be accurately estimated. Systemic veins: Inferior vena cava: The vessel is dilated. There is (>= 50%) respiratory change in the IVC dimension. Measurements Left ventricle Value Ref Aortic valve Value Ref JESSE, LAX 4.6 cm 4.2 - 5.8 Rodrigo diam, ED 2.1 cm ---- ESD, LAX 3.2 cm 2.5 - 4.0 Peak v, S 1.39 m/sec ---- FS, LAX 31 % 25 - 43 VTI, S 28.6 cm ---- PW, ED, LAX (H) 1.1 cm 0.6 - 1.0 Mean grad, S 4.0 mm Hg ---- E', med rodrigo, TDI 9.5 cm/sec >=7.0 Peak grad, S 8.0 mm Hg ---- E/e', med rodrigo, 11 TDI Mitral valve Value Ref Peak E 1.03 m/sec ---- LVOT Value Ref Peak A 0.53 m/sec ---- Peak peter, S 1.04 m/sec Decel time 124 ms ---- Mean grad, S 2 mm Hg Peak grad, D 4.2 mm Hg ---- Peak E/A ratio 1.9 ---- Ventricular septum Value Ref IVS, ED (H) 1.1 cm 0.6 - 1.0 Pulmonic valve Value Ref Peak v, S 0.91 m/sec ---- Right ventricle Value Ref Peak grad, S 3.0 mm Hg ---- JESSE, LAX 2.1 cm Aortic root Value Ref Left atrium Value Ref Root diam 3.2 cm <4.0 AP dim, ES 3.60 cm 3.00 - Root max diam, ED 3.2 cm <4.0 4.00 ML dim, A4C 4.1 cm Ascending aorta Value Ref SI dim, A4C 5.0 cm AAo AP diam, S 2.7 cm ---- AAo AP diam/bsa, S 1.5 cm/m^2 ---- Right atrium Value Ref SI dim, ES (H) 6.0 cm 3.4 - 5.3 Inferior vena cava Value Ref ML dim, ES, A4C 4.3 cm 2.6 - 4.4 Diam 2.4 cm ---- Estimated RAP 8 mm Hg Legend: (L) and (H) anastacia values outside specified reference range. Prepared and electronically signed by Richie Root MD 07/10/2019 10:23
--- NOTE | 2019-07-10 13:09 | PN ---
Progress Note - Progress Note Date of Service: 07/10/19 Note: 88 yo male, h/o prostate CA and dementia, resident at [place], had complained of increasing left hip pain. X-rays taken at [facility] were read as negative, but he developed a shortened, externally rotated left leg. X-rays here showed a displaced femoral neck fracture. Dr. Casillas and I spoke yesterday about him and I ordered a CT of the hip. Official report is that it is likely a pathological fracture. I do agree. Just spoke with the patient and his proxy about surgery, not doing surgery and hospicare. The concern is that the surgery can fix the hip, but the cancer continues its course and he has a significant decline similar to how things have been going these past few weeks. Dr. Casillas has spoken to them in the past about hospicare and they are interested. I also spoke with Drt. Casillas today and she agrees with the plan. I also discussed with them that surgery is still an option in the future, so if the pain relief is inadequate, or things turn around, we still can do things to fix the hip.
[2019-07-10 13:53] LABS: Urine Appearance Turbid; Urine Bilirubin Negative (Negative); Urine Blood 2+ (Negative); Urine Color Amber; Urine Glucose Negative (Negative); Urine Ketones Negative (Negative); Urine Nitrite Negative (Negative); Urine Protein Negative (Negative); Urine Specific Gravity 1.018 (1.010-1.030); Urine Urobilinogen Negative (Negative)
[2019-07-10 13:55] LABS: Urine Bacteria Absent (Absent); Urine Red Blood Cell 2+(6-10/hpf) (Absent); Urine Squamous Epithelial Cell Present (Absent); Urine White Blood Cell 1+(6-10/hpf) (Absent)
--- NOTE | 2019-07-10 16:02 | PN ---
Subjective Date of Service: 07/10/19 Interval History: Patient has no complains. He is interactive but confused, reported pain well controlled. Had a goal of care discussion with patient and patient's health care proxy Adrián Boyle this noon. Whit is a 88 y/o PMH Dementia, schizoid personality, anxiety, progressive prostate cancer, presented with a hip fracture, confirmed by CT pelvis likely pathological pelvic fracture with possible tumor mass in left iliopsoas. We discussed about the above CT scan findings. We also discussed about limited interventions about this fracture in the context of his tumor spreading, and guarded prognosis with his overall state. Patient had limited understanding despite explaining due to his dementia, he kept saying "I am not pleasant with it". His health care proxy Adrián does understand it well, and ask questions that reflect great understanding. We discussed about hospice placement to make his rest of life comfortable. Option of going [place] hosp[place] was proposed. We will place a consult for hospice tomorrow to give them more information. Both of them appreciate the input from us. Objective Active Medications: Acetaminophen (Tylenol Tab*) 650 mg PO Q4H PRN PRN Reason: PAIN Bicalutamide (Casodex (Nf)) 50 mg PO DAILY [facility]; Protocol Last Admin: 07/10/19 10:05 Dose: 50 mg Docusate Sodium (Colace Cap*) 100 mg PO DAILY [facility] Last Admin: 07/10/19 10:05 Dose: 100 mg Escitalopram Oxalate (Lexapro *) 5 mg PO DAILY [facility]; Protocol Last Admin: 07/10/19 10:05 Dose: 5 mg Heparin Sodium (Porcine) (Heparin Vial(*)) 5,000 units SUBCUT Q8HR AUTUMN Last Admin: 07/10/19 14:52 Dose: 5,000 units Melatonin (Melatonin) 3 mg PO BEDTIME AUTUMN Last Admin: 07/09/19 22:35 Dose: 3 mg Mirtazapine (Remeron Tab*) 30 mg PO BEDTIME AUTUMN Last Admin: 07/09/19 22:42 Dose: 30 mg Olanzapine (Zyprexa Tab*) 5 mg PO BEDTIME AUTUMN Last Admin: 07/09/19 22:34 Dose: 5 mg Oxycodone/Acetaminophen (Percocet 5/325 Tab*) 1 tab PO Q4H PRN PRN Reason: PAIN - MODERATE Oxycodone/Acetaminophen (Percocet 5/325 Tab*) 2 tab PO Q4H PRN PRN Reason: PAIN - SEVERE Polyethylene Glycol/Electrolytes (Miralax (17 Gm Dose Charlie)) 17 gm PO DAILY PRN PRN Reason: CONSTIPATION Senna (Senokot 8.6 Mg Tab*) 1 tab PO DAILY PRN PRN Reason: CONSTIPATION Vital Signs - 8 hr 07/10/19 07/10/19 07/10/19 08:00 11:31 15:30 Temperature 98.9 F 99.7 F Pulse Rate 85 77 Respiratory 16 16 16 Rate Blood Pressure 123/54 117/44 (mmHg) O2 Sat by Pulse 94 95 Oximetry Oxygen Devices in Use Now: None Exam: Appearance: age appropriate appearance, not in NAD, alert, demented Ears/Nose/Mouth/Throat: Clear Oropharnyx, Mucous Membranes Moist Respiratory: Symmetrical Chest Expansion and Respiratory Effort, clear on auscultation Cardiovascular: NL Sounds; No Murmurs; No JVD, RRR Abdominal: NL Sounds; No Tenderness; No Distention, No Hepatosplenomegaly Extremities: No Edema Neurological: Alert, not oriented. Moving all 4 limbs. Result Diagrams: 07/10/19 06:00 07/10/19 06:00 Assess/Plan/Problems-Billing Assessment: Whit Bowers is a 88yo male [place] resident with history of progressive prostate cancer, dementia, schizoid personality disorder, anxiety, presented with left LL for 10/05, found to have left hip pathological fracture likely due to metastatic prostate cancer. - Patient Problems (1) Hip fracture, pathological Current Visit: Yes Status: Acute Code(s): M84.459A - PATHOLOGICAL FRACTURE, HIP, UNSP, INIT ENCNTR FOR FRACTURE SNOMED Code(s): 547660126 Comment: - left hip pathological fracture due to metastatic prostate cancer - appreciate surgical team input, family decided not for surgery and plan for hospice care after care goal discussion; surgery is still an option if pain relief not adequate or things turn around - pain control with oxycodone for now (2) Prostate cancer Current Visit: Yes Status: Acute Code(s): C61 - MALIGNANT NEOPLASM OF PROSTATE SNOMED Code(s): 849722091 Comment: - progressive prostate cancer with increasing PSA and bone mets - likely metastatic cancer - patient is not a good candidate for surgeries or chemos. he is already on Bicalutamide which is a hormone therapy. (3) Dementia Current Visit: Yes Status: Acute Code(s): F03.90 - UNSPECIFIED DEMENTIA WITHOUT BEHAVIORAL DISTURBANCE SNOMED Code(s): 52202321 Comment: - stable. continue to monitor (4) Anxiety Current Visit: Yes Status: Acute Code(s): F41.9 - ANXIETY DISORDER, UNSPECIFIED SNOMED Code(s): 02414988 Comment: - on escitalopram and olanzapine (5) Need for comfort care Current Visit: Yes Status: Acute Code(s): OCF6016 - SNOMED Code(s): 108312461 Comment: - refer comfort care consult tomorrow and discuss about hospice care options. Status and Disposition: Inpatient Medicine. Attestation Attending/Supervising Physician Comment: Agree with resident note, and appreciate family discussion regarding difficult predicament of pathologic fracture Essentially: 88M PMH dementia, schizoid personality disorder, anxiety, and prostate cancer, presents with pathologic left hip fracture with progression of disease from prostate cancer and poor options for treatment, though still could consider palliative fracture care. Will discuss with Dr. Casillas tomorrow -
[2019-07-10] MEDS: oxyCODONE/Acetamin 5/325 MG* TAB PO PRN (18:54)
[2019-07-10] MEDS: Mirtazapine TAB* 15 MG PO SCH (20:50)
[2019-07-10] MEDS: OLANzapine TAB* 5 MG PO SCH (20:51)
[2019-07-10] MEDS: Melatonin 3 MG TAB PO SCH (20:51)
[2019-07-10] MEDS: Acetaminophen TAB* 325 MG PO PRN (21:04)
[2019-07-11] MEDS: Heparin VIAL(*) 5000 UNITS/ML VIAL (FIVE THOUSAND) SUBCUT SCH ×3 (05:46→22:50)
--- NOTE | 2019-07-11 06:24 | PN ---
Hospitalist Progress Note Date of Service: 07/11/19 Called from nursing staff received about difficulty swallowing. It was reported that he had been having trouble with liquids. Will make npo and obtain a swallowing eval
--- NOTE | 2019-07-11 07:15 | PN ---
Subjective Date of Service: 07/11/19 Interval History: HD 3 on 07/11 Overnight: Difficulty in swallowing. Ordered swallow evaluation Vitals: stable on 2L OF OXYGEN Patient oriented to self but not to time and place. patient says he is feeling fine and does not complain of pain. He says he has cough while swallowing. When asked why is he here in the hospital he says he does not know but says "Oh I forgot but I now it". Palliative care consult today. Discussed with PCP about goals of care and need of palliative surgery. Will weigh in oncology input. Patient will need SNF with hospice care. care worker and CM aware. Objective Active Medications: Acetaminophen (Tylenol Tab*) 650 mg PO Q4H PRN PRN Reason: PAIN Last Admin: 07/10/19 21:04 Dose: 650 mg Bicalutamide (Casodex (Nf)) 50 mg PO DAILY [facility]; Protocol Last Admin: 07/10/19 10:05 Dose: 50 mg Docusate Sodium (Colace Cap*) 100 mg PO DAILY [facility] Last Admin: 07/10/19 10:05 Dose: 100 mg Escitalopram Oxalate (Lexapro *) 5 mg PO DAILY [facility]; Protocol Last Admin: 07/10/19 10:05 Dose: 5 mg Heparin Sodium (Porcine) (Heparin Vial(*)) 5,000 units SUBCUT Q8HR [facility] Last Admin: 07/11/19 05:46 Dose: 5,000 units Melatonin (Melatonin) 3 mg PO BEDTIME AUTUMN Last Admin: 07/10/19 20:51 Dose: 3 mg Mirtazapine (Remeron Tab*) 30 mg PO BEDTIME AUTUMN Last Admin: 07/10/19 20:50 Dose: 30 mg Olanzapine (Zyprexa Tab*) 5 mg PO BEDTIME AUTUMN Last Admin: 07/10/19 20:51 Dose: 5 mg Oxycodone/Acetaminophen (Percocet 5/325 Tab*) 1 tab PO Q4H PRN PRN Reason: PAIN - MODERATE Oxycodone/Acetaminophen (Percocet 5/325 Tab*) 2 tab PO Q4H PRN PRN Reason: PAIN - SEVERE Last Admin: 07/10/19 18:54 Dose: 2 tab Polyethylene Glycol/Electrolytes (Miralax (17 Gm Dose Charlie)) 17 gm PO DAILY PRN PRN Reason: CONSTIPATION Last Admin: 07/10/19 21:04 Dose: 17 gm Senna (Senokot 8.6 Mg Tab*) 1 tab PO DAILY PRN PRN Reason: CONSTIPATION Vital Signs - 8 hr 07/11/19 07/11/19 07/11/19 00:02 00:52 04:39 Temperature 97.9 F 99.2 F Pulse Rate 68 81 77 Respiratory 17 17 Rate Blood Pressure 110/42 126/52 (mmHg) O2 Sat by Pulse 87 91 93 Oximetry 07/11/19 06:26 Temperature Pulse Rate Respiratory Rate Blood Pressure (mmHg) O2 Sat by Pulse 93 Oximetry Oxygen Devices in Use Now: Nasal Cannula Exam: General - NAD, sitting up in bed Eyes - PERRLA, EOM intact HEENT- no abnormality Cardiovascular - RRR no m/r/g, no JVD, no carotid bruits Lungs - Clear to auscltation, no use of acessory muscles, no crackles or wheezes. Skin - No rashes, skin warm and dry, no erythematous areas Abdomen - Normal bowel sounds, abdomen soft and nontender Extremities - No edema, cyanosis or clubbing Neurological Alert and oriented to self only Result Diagrams: 07/10/19 06:00 07/10/19 06:00 Assess/Plan/Problems-Billing Assessment: Whit Bowers is a 88yo male [place] resident with history of progressive prostate cancer, dementia, schizoid personality disorder, anxiety, presented with left LL for 10/05, found to have left hip pathological fracture likely due to metastatic prostate cancer. Now on comfort care. - Patient Problems (1) Hip fracture, pathological Current Visit: Yes Status: Acute Code(s): M84.459A - PATHOLOGICAL FRACTURE, HIP, UNSP, INIT ENCNTR FOR FRACTURE SNOMED Code(s): 480710333 Comment: - left hip pathological fracture due to metastatic prostate cancer - appreciate surgical team input, family decided not for surgery and plan for hospice care after care goal discussion; surgery is still an option if pain relief not adequate or things turn around - pain well-controlled with oxycodone for now -will need oncology input on prognosis and benefits of palliative surgery. (2) Prostate cancer Current Visit: Yes Status: Acute Code(s): C61 - MALIGNANT NEOPLASM OF PROSTATE SNOMED Code(s): 312834197 Comment: - progressive prostate cancer with increasing PSA and bone mets - likely metastatic cancer- infiltrates on left ilopsoas seen on imaging - patient is not a good candidate for surgeries or chemos. he is already on Bicalutamide which is a hormone therapy. -may need palliative care for comfort (3) Dementia Current Visit: Yes Status: Acute Code(s): F03.90 - UNSPECIFIED DEMENTIA WITHOUT BEHAVIORAL DISTURBANCE SNOMED Code(s): 11747108 Comment: - stable. continue to monitor (4) Need for comfort care Current Visit: Yes Status: Acute Code(s): KBN3457 - SNOMED Code(s): 217803421 Comment: -Comfort care consult placed. -appreciate Dr. quiroz input. (5) Anxiety Current Visit: Yes Status: Acute Code(s): F41.9 - ANXIETY DISORDER, UNSPECIFIED SNOMED Code(s): 17941352 Comment: - on escitalopram and olanzapine (6) DNR (do not resuscitate) Current Visit: Yes Status: Acute Status and Disposition: Inpatient Medicine. palliative care following patient will need SNF with hospice care Attending: Malissa Webb Attestation Documenting Resident: Yolanda Chaudhary Supervising Physician: Malissa Webb Attending/Supervising Physician Comment: Agree with resident note, and appreciate family discussion regarding difficult predicament of pathologic fracture Essentially: 88M PMH dementia, schizoid personality disorder, anxiety, and prostate cancer, presents with pathologic left hip fracture with progression of disease from prostate cancer and poor options for treatment. Pursuing hospice care. Attestation: This service has been performed in part by a resident under the direction of a teaching physician.I, Malissa Webb, performed the service, or was physically present during the critical, or [place] portions of the service, furnished by the resident. I participated in the management of the patient.
--- NOTE | 2019-07-11 10:00 | PN ---
Progress Note - Progress Note Date of Service: 07/11/19 SOAP: Subjective: []Pt seen and examined at bedside. Denies LLE pain, CP, SOB, dizziness, nausea. Objective: []Gen: NAD, laying comfortably in bed LLE: tender over lateral hip. thigh soft. df/pf intact, dp2+, sensation intact to light touch distally Calves supple and nontender Assessment: []left femoral neck fracture Plan: []NWB LLE Palliative care and oncology consult. Patient will likely have non-op treatment. Please alert orthopedics if family/patient desires surgery. Vital Signs Temp 97.6 F 07/11/19 07:40 Pulse 76 07/11/19 07:40 Resp 16 07/11/19 08:00 BP 124/52 07/11/19 07:40 Pulse Ox 92 07/11/19 08:00 Intake & Output 07/10/19 07/11/19 07/11/19 18:59 06:59 18:59 Intake Total 210 620 Output Total 350 0 0 Balance -140 620 0 Intake: Oral 210 620 Output: Urine 350 0 0 Other: Estimated Void Medium Large Large Date of Last Bowel 07/11/2019 Movement # Bowel Movements 1 1 Estimated Stool Amount Medium Small # Voids 1 1 Laboratory Last Values WBC 8.4 10^3/uL (3.5-10.8) 07/10/19 06:00 RBC 2.65 10^6 /uL (4.18-5.48) L 07/10/19 06:00 Hgb 8.6 g/dL (14.0-18.0) L 07/10/19 06:00 Hct 25 % (42-52) L 07/10/19 06:00 MCV 93 fL (80-94) 07/10/19 06:00 MCH 32 pg (27-31) H 07/10/19 06:00 MCHC 35 g/dL (31-36) 07/10/19 06:00 RDW 20 % (10-15) H 07/10/19 06:00 Plt Count 141 10^3/uL (150-450) L 07/10/19 06:00 MPV 6.9 fL (7.4-10.4) L 07/10/19 06:00 Neut % (Auto) 79.0 % 07/10/19 06:00 Lymph % (Auto) 12.3 % 07/10/19 06:00 Rush % (Auto) 7.9 % 07/10/19 06:00 Eos % (Auto) 0.5 % 07/10/19 06:00 Baso % (Auto) 0.3 % 07/10/19 06:00 Absolute Neuts (auto) 6.7 10^3/ul (1.5-7.7) 07/10/19 06:00 Absolute Lymphs (auto) 1.0 10^3/ul (1.0-4.8) 07/10/19 06:00 Absolute Monos (auto) 0.7 10^3/ul (0-0.8) 07/10/19 06:00 Absolute Eos (auto) 0.0 10^3/ul (0-0.6) 07/10/19 06:00 Absolute Basos (auto) 0.0 10^3/ul (0-0.2) 07/10/19 06:00 Absolute Nucleated RBC 0.0 10^3/ul 07/10/19 06:00 Nucleated RBC % 0.1 07/10/19 06:00 Polychromasia 2+ 07/09/19 10:35 Anisocytosis 1+ 07/09/19 10:35 ESR 70 mm/Hr (0-19) H 07/09/19 10:35 Sodium 137 mmol/L (135-145) 07/10/19 06:00 Potassium 3.4 mmol/L (3.5-5.0) L 07/10/19 06:00 Chloride 105 mmol/L (101-111) 07/10/19 06:00 Carbon Dioxide 24 mmol/L (22-32) 07/10/19 06:00 Anion Gap 8 mmol/L (2-11) 07/10/19 06:00 BUN 22 mg/dL (6-24) 07/10/19 06:00 Creatinine 0.82 mg/dL (0.67-1.17) 07/10/19 06:00 Est GFR ( Amer) 107.0 (>60) 07/10/19 06:00 Est GFR (Non-Af Amer) 88.5 (>60) 07/10/19 06:00 BUN/Creatinine Ratio 26.8 (8-20) H 07/10/19 06:00 Glucose 124 mg/dL (70-100) H 07/10/19 06:00 Lactic Acid 0.8 mmol/L (0.5-2.0) 07/10/19 09:00 Calcium 8.3 mg/dL (8.6-10.3) L 07/10/19 06:00 Iron 33 ug/dL (50-212) L 07/10/19 06:00 TIBC 307 mcg/dL (250-450) 07/10/19 06:00 % Saturation 11 % (15-55) L 07/10/19 06:00 Unsat Iron Binding < 292 ug/dL 07/10/19 06:00 Transferrin 219 mg/dL (203-362) 07/10/19 06:00 Ferritin 863.9 ng/mL (24-336) H 07/10/19 06:00 Total Bilirubin 0.80 mg/dL (0.2-1.0) 07/09/19 10:35 AST 56 U/L (13-39) H 07/09/19 10:35 ALT 22 U/L (7-52) 07/09/19 10:35 Alkaline Phosphatase 2877 U/L (34-104) H 07/09/19 10:35 C-Reactive Protein 100.59 mg/L (<8.01) H 07/09/19 10:35 B-Natriuretic Peptide 483 pg/mL (<=100) H 07/09/19 10:35 Total Protein 6.3 g/dL (6.4-8.9) L 07/09/19 10:35 Albumin 3.8 g/dL (3.2-5.2) 07/09/19 10:35 Globulin 2.5 g/dL (2-4) 07/09/19 10:35 Albumin/Globulin Ratio 1.5 (1-3) 07/09/19 10:35 Urine Color Steffanie 07/10/19 11:35 Urine Appearance Turbid 07/10/19 11:35 Urine pH 5.0 (5-9) 07/10/19 11:35 Ur Specific [place] 1.018 (1.010-1.030) 07/10/19 11:35 Urine Protein Negative (Negative) 07/10/19 11:35 Urine Ketones Negative (Negative) 07/10/19 11:35 Urine Blood 2+ (Negative) A 07/10/19 11:35 Urine Nitrate Negative (Negative) 07/10/19 11:35 Urine Bilirubin Negative (Negative) 07/10/19 11:35 Urine Urobilinogen Negative (Negative) 07/10/19 11:35 Ur Leukocyte Esterase Negative (Negative) 07/10/19 11:35 Urine WBC (Auto) 1+(6-10/hpf) (Absent) A 07/10/19 11:35 Urine RBC (Auto) 2+(6-10/hpf) (Absent) A 07/10/19 11:35 Ur Squamous Epith Cells Present (Absent) A 07/10/19 11:35 Calcium Oxalate Crystal Present (Absent) A 07/10/19 11:35 Urine Bacteria Absent (Absent) 07/10/19 11:35 Urine Glucose Negative (Negative) 07/10/19 11:35 Urine Ascorbic Acid * (Negative) A 07/10/19 11:35
--- NOTE | 2019-07-11 10:32 | PN ---
Hospitalist Progress Note Date of Service: 07/11/[address] Casillas on the phone this morning. We discuss palliative fracture repair vs untreated fracture and returns to another SNF as he can not return to [facility] Unclear what prognosis is from a prostate ca standpoint and we can have oncology weigh in, from a non repaired hip fracture standpoint, his mortality would increase sig, likely falling within 6 mo in bed bound state Will ask oncology opinion and continue shared decision making approach as well as have case mgmt weigh in on SNF options.
[2019-07-11] MEDS: Docusate CAP* 100 MG PO SCH (11:44)
[2019-07-11] MEDS: BICALUTAMIDE 50 MG PO SCH (11:45)
[2019-07-11] MEDS: Escitalopram * 5 MG TAB PO SCH (11:45)
--- NOTE | 2019-07-11 13:07 | CONSULT ---
Palliative / Hospice Consult Ordering Provider: Kush Will - PCP-Vinny Referal Reason: Goals of care/docusate, PEG,senna/oxy - Subjective Code Status: DNR Advance Directives Location: In Chart [facility] Part A Completed: Yes - on chart - History or Present Illness History or Present Illness: 88yo male resident of [place] presents to ER with L hip. PMH is significant for dementia, schizoid personality disorder, anxiety, prostate ca, anemia and vit B def. PSHx no tob, no drug use, no etoh, not , no children, friend Adrián his HCP. Studies ekg-supravent, hip xray-transverse displaced angulated fracture of the L femoral neck, CXR-CHF, pelvic CT-diffuse metastatic disease, displaced L subcapital femoral neck fx, mass L iliopsoas hematoma vs mass, Echo- EF 60-65%, small pericardial effusion, H/H 8.6/25, BUN/Cr 22/.82, egfr 88.5, Ca 8.3, alk phos 2877, CRP 100.59, BNP 483, Fe 33, and alb 2.8. Pt admitted with L hip fx, prostate cancer stage 4 and dementia. All history is from pt, friend and medical record. Lab Values: Abnormal Lab Results 07/10/19 11:35 Urine Color Steffanie Urine Appearance Turbid Urine pH 5.0 Ur Specific [place] 1.018 Urine Protein Negative Urine Ketones Negative Urine Blood 2+ A Urine Nitrate Negative Urine Bilirubin Negative Urine Urobilinogen Negative Ur Leukocyte Esterase Negative Urine WBC (Auto) 1+(6-10/hpf) A Urine RBC (Auto) 2+(6-10/hpf) A Ur Squamous Epith Cells Present A Calcium Oxalate Crystal Present A Urine Bacteria Absent Urine Glucose Negative Urine Ascorbic Acid * A Laboratory Last Values WBC 8.4 10^3/uL (3.5-10.8) 07/10/19 06:00 RBC 2.65 10^6 /uL (4.18-5.48) L 07/10/19 06:00 Hgb 8.6 g/dL (14.0-18.0) L 07/10/19 06:00 Hct 25 % (42-52) L 07/10/19 06:00 MCV 93 fL (80-94) 07/10/19 06:00 MCH 32 pg (27-31) H 07/10/19 06:00 MCHC 35 g/dL (31-36) 07/10/19 06:00 RDW 20 % (10-15) H 07/10/19 06:00 Plt Count 141 10^3/uL (150-450) L 07/10/19 06:00 MPV 6.9 fL (7.4-10.4) L 07/10/19 06:00 Neut % (Auto) 79.0 % 07/10/19 06:00 Lymph % (Auto) 12.3 % 07/10/19 06:00 [place] % (Auto) 7.9 % 07/10/19 06:00 Eos % (Auto) 0.5 % 07/10/19 06:00 Baso % (Auto) 0.3 % 07/10/19 06:00 Absolute Neuts (auto) 6.7 10^3/ul (1.5-7.7) 07/10/19 06:00 Absolute Lymphs (auto) 1.0 10^3/ul (1.0-4.8) 07/10/19 06:00 Absolute Monos (auto) 0.7 10^3/ul (0-0.8) 07/10/19 06:00 Absolute Eos (auto) 0.0 10^3/ul (0-0.6) 07/10/19 06:00 Absolute Basos (auto) 0.0 10^3/ul (0-0.2) 07/10/19 06:00 Absolute Nucleated RBC 0.0 10^3/ul 07/10/19 06:00 Nucleated RBC % 0.1 07/10/19 06:00 Polychromasia 2+ 07/09/19 10:35 Anisocytosis 1+ 07/09/19 10:35 ESR 70 mm/Hr (0-19) H 07/09/19 10:35 Sodium 137 mmol/L (135-145) 07/10/19 06:00 Potassium 3.4 mmol/L (3.5-5.0) L 07/10/19 06:00 Chloride 105 mmol/L (101-111) 07/10/19 06:00 Carbon Dioxide 24 mmol/L (22-32) 07/10/19 06:00 Anion Gap 8 mmol/L (2-11) 07/10/19 06:00 BUN 22 mg/dL (6-24) 07/10/19 06:00 Creatinine 0.82 mg/dL (0.67-1.17) 07/10/19 06:00 Est GFR ( Amer) 107.0 (>60) 07/10/19 06:00 Est GFR (Non-Af Amer) 88.5 (>60) 07/10/19 06:00 BUN/Creatinine Ratio 26.8 (8-20) H 07/10/19 06:00 Glucose 124 mg/dL (70-100) H 07/10/19 06:00 Lactic Acid 0.8 mmol/L (0.5-2.0) 07/10/19 09:00 Calcium 8.3 mg/dL (8.6-10.3) L 07/10/19 06:00 Iron 33 ug/dL (50-212) L 07/10/19 06:00 TIBC 307 mcg/dL (250-450) 07/10/19 06:00 % Saturation 11 % (15-55) L 07/10/19 06:00 Unsat Iron Binding < 292 ug/dL 07/10/19 06:00 Transferrin 219 mg/dL (203-362) 07/10/19 06:00 Ferritin 863.9 ng/mL (24-336) H 07/10/19 06:00 Total Bilirubin 0.80 mg/dL (0.2-1.0) 07/09/19 10:35 AST 56 U/L (13-39) H 07/09/19 10:35 ALT 22 U/L (7-52) 07/09/19 10:35 Alkaline Phosphatase 2877 U/L (34-104) H 07/09/19 10:35 C-Reactive Protein 100.59 mg/L (<8.01) H 07/09/19 10:35 B-Natriuretic Peptide 483 pg/mL (<=100) H 07/09/19 10:35 Total Protein 6.3 g/dL (6.4-8.9) L 07/09/19 10:35 Albumin 3.8 g/dL (3.2-5.2) 07/09/19 10:35 Globulin 2.5 g/dL (2-4) 07/09/19 10:35 Albumin/Globulin Ratio 1.5 (1-3) 07/09/19 10:35 Urine Color Steffanie 07/10/19 11:35 Urine Appearance Turbid 07/10/19 11:35 Urine pH 5.0 (5-9) 07/10/19 11:35 Ur Specific [place] 1.018 (1.010-1.030) 07/10/19 11:35 Urine Protein Negative (Negative) 07/10/19 11:35 Urine Ketones Negative (Negative) 07/10/19 11:35 Urine Blood 2+ (Negative) A 07/10/19 11:35 Urine Nitrate Negative (Negative) 07/10/19 11:35 Urine Bilirubin Negative (Negative) 07/10/19 11:35 Urine Urobilinogen Negative (Negative) 07/10/19 11:35 Ur Leukocyte Esterase Negative (Negative) 07/10/19 11:35 Urine WBC (Auto) 1+(6-10/hpf) (Absent) A 07/10/19 11:35 Urine RBC (Auto) 2+(6-10/hpf) (Absent) A 07/10/19 11:35 Ur Squamous Epith Cells Present (Absent) A 07/10/19 11:35 Calcium Oxalate Crystal Present (Absent) A 07/10/19 11:35 Urine Bacteria Absent (Absent) 07/10/19 11:35 Urine Glucose Negative (Negative) 07/10/19 11:35 Urine Ascorbic Acid * (Negative) A 07/10/19 11:35 - Objective Active Medications: Acetaminophen (Tylenol Tab*) 650 mg PO Q4H PRN PRN Reason: PAIN Last Admin: 07/10/19 21:04 Dose: 650 mg Bicalutamide (Casodex (Nf)) 50 mg PO DAILY [facility]; Protocol Last Admin: 07/11/19 11:45 Dose: 50 mg Docusate Sodium (Colace Cap*) 100 mg PO DAILY [facility] Last Admin: 07/11/19 11:44 Dose: 100 mg Escitalopram Oxalate (Lexapro *) 5 mg PO DAILY [facility]; Protocol Last Admin: 07/11/19 11:45 Dose: 5 mg Heparin Sodium (Porcine) (Heparin Vial(*)) 5,000 units SUBCUT Q8HR [facility] Last Admin: 07/11/19 05:46 Dose: 5,000 units Melatonin (Melatonin) 3 mg PO BEDTIME [facility] Last Admin: 07/10/19 20:51 Dose: 3 mg Mirtazapine (Remeron Tab*) 30 mg PO BEDTIME [facility] Last Admin: 07/10/19 20:50 Dose: 30 mg Olanzapine (Zyprexa Tab*) 5 mg PO BEDTIME [facility] Last Admin: 07/10/19 20:51 Dose: 5 mg Oxycodone/Acetaminophen (Percocet 5/325 Tab*) 1 tab PO Q4H PRN PRN Reason: PAIN - MODERATE Oxycodone/Acetaminophen (Percocet 5/325 Tab*) 2 tab PO Q4H PRN PRN Reason: PAIN - SEVERE Last Admin: 07/10/19 18:54 Dose: 2 tab Polyethylene Glycol/Electrolytes (Miralax (17 Gm Dose Charlie)) 17 gm PO DAILY PRN PRN Reason: CONSTIPATION Last Admin: 07/10/19 21:04 Dose: 17 gm Senna (Senokot 8.6 Mg Tab*) 1 tab PO DAILY PRN PRN Reason: CONSTIPATION Vital Signs: Vital Signs: Temp Pulse Resp BP Pulse Ox 99.3 F 76 16 126/57 95 07/11/19 11:21 07/11/19 11:21 07/11/19 11:21 07/11/19 11:21 07/11/19 11:21 Patient Weight: Weight 62.312 kg Intake and Output: Intake & Output 07/09/19 07/10/19 07/11/19 07/12/19 06:59 06:59 06:59 06:59 Intake Total 600 830 Output Total 300 350 0 Balance 300 480 0 Weight 62.312 kg Intake: Oral 600 830 Output: Urine 300 350 0 Other: Estimated Void Large Large Large Date of Last Bowel 07/11/2019 Movement # Bowel Movements 1 1 Estimated Stool Amount Medium Small # Voids 1 1 1 ADLs: Meal Record Start: 07/09/19 13: 26 Freq: Status: Active Protocol: Created 07/09/19 13:26 System (Rec: 07/09/19 13:26 System [id number]) Document 07/09/19 19:53 [id number] (Rec: 07/09/19 20:01 [id number] [id number]) Intake and Output Start: 07/09/19 10: 20 Freq: Status: Active Protocol: Created 02/08/20 10:20 System (Rec: 07/09/19 10:20 System [id number]) Intake and Output Start: 07/09/19 13: 26 Freq: DAILY@0600,1400,2200 Status: Active Protocol: Created 07/09/19 13:26 System (Rec: 07/09/19 13:26 System [id number]) Document 07/09/19 14:00 [id number] (Rec: 07/09/19 14:27 [id number] SSU-M17) Document 07/09/19 19:53 [id number] (Rec: 07/09/19 20:01 [id number] SSU-M18) Document 07/09/19 20:23 [id number] (Rec: 07/09/19 20:23 [id number] SSU-M22) Document 07/09/19 21:00 [id number] (Rec: 07/10/19 07:18 [id number] SSU-M22) Document 07/09/19 22:25 [id number] (Rec: 07/09/19 22:27 [id number] SSU-M18) Document 07/10/19 05:56 [id number] (Rec: 07/10/19 05:59 [id number] SSU-M13) Document 07/10/19 06:00 [id number] (Rec: 07/10/19 07:20 [id number] SSU-M22) Document 07/10/19 13:08 [id number] (Rec: 07/10/19 13:08 [id number] SSU-M18) Document 07/10/19 21:27 [id number] (Rec: 07/10/19 21:29 [id number] SSU-M17) Document 07/10/19 22:20 [id number] (Rec: 07/10/19 22:20 [id number] SSU-C11) Document 07/11/19 04:40 [id number] (Rec: 07/11/19 04:40 [id number] SSU-M22) Document 07/11/19 05:28 [id number] (Rec: 07/11/19 05:28 [id number] SSU-M22) Document 07/11/19 10:41 [id number] (Rec: 07/11/19 10:43 [id number] SSU-C10) Eyes: No Scleral Icterus Ears/Nose/Mouth/Throat: NL Teeth, Lips, Gums Neck: NL Appearance and Movements; NL JVP Cardiovascular: NL Sounds; No Murmurs; No JVD Respiratory: Symmetrical Chest Expansion and Respiratory Effort Abdominal: NL Sounds; No Tenderness; No Distention Extremities: No Edema Neurological: Alert and Oriented x 3 - Assessment Assessment: 88yo male with L hip fx, prostate ca stage 4 and dementia, declining hip repair - Plan Consult Plan (MU): Hospice Plan: Long discussion with pt and friend about goals of care. At this time they don't want to pursue repair because of prostate cancer fearful they repair this and then he breaks other hip. Pt is with minimal discomfort only with movement. Since he is non ambulatory will not be able to go back to [place]. They are interested in [facility] with hospice sign on or [facility] Dr. Casillas was contacted because she is pt's PCP and she would like to get oncology input on prognosis before considering the residence. Hospice information/brochure given. Pt and friend are happy with either option. Will send referral once we have input from oncology. Hospice eligibility is based on prostate cancer stage 4 and current L hip fx. KPS 50%, PPS 40% - Time On Unit Date of Evaluation: 07/11/19 Hospice Consult Time in: 12:00 Hospice Consult Time Out: 13:00 Hospice Consult Time Total: 60 > 50% of Time Spend In Counseling or Coordinating Care: Yes
[2019-07-11] MEDS: oxyCODONE/Acetamin 5/325 MG* TAB PO PRN (16:02)
--- NOTE | 2019-07-11 20:23 | CONS ---
CONSULTATION REPORT: DATE OF CONSULT: 07/11/19 REASON FOR CONSULT: Prostate cancer and fractured hip. REFERRING PHYSICIAN: Hospitalist. PRIMARY CARE PHYSICIAN: Dr. Casillas. SURGEON: Dr. Will. HISTORY OF PRESENT ILLNESS: Mr. Bowers is an 88-year-old male with a history of dementia for approximately 4 years, moved into the [facility] 18 months ago. He has no significant family, but does have a good friend of 50 years who is serving as his proxy and invested in his care. Quality of life has generally been good. He has been pleasant in his dementia, he had continued to be quite mobile. Longstanding history of running and walking. Approximately 3 weeks ago, he did have a fall out of bed, but he fell only a small distance and there were no injuries appreciated at that time. Subsequently has developed increasing pain in the right hip. Approximately 2 weeks ago, he started using a rolling walker and over the last 7 days, he has been immobile. He did have x-rays 7 to 10 days ago at [place] that per report were negative, but we do not have a picture of the films. Pain worsened on 07/09/19, so he was unable to bear weight and he was brought to the emergency room. On presentation, notable labs are hemoglobin of 8.6, down from baseline of 10.1 on 06/09/19, 9.5 on 07/09/19, and 8.6 today, with a baseline of 13.7 on 02/21/18; creatinine 0.82. Liver function tests significant for an alkaline phosphatase of 2877, normal bilirubin and normal ALT and AST. He has longstanding metastatic prostate cancer and has been followed by Dr. Sylvester. He had been on Lupron and Casodex, receiving a Lupron shot every 4 months. PSA that we have in the [facility] system include 128 on , down to 8.5 on 07/01/18, then 9.13 on 11/11/18, then 182 on 03/24/19, then 626 on 06/09/19. On presentation, he had x-ray showing a displaced hip fracture on the left and he subsequently had a CT scan done of the pelvis on 07/09/19. CT scan shows diffuse osseous metastatic disease with diffuse sclerosis. There is a left iliopsoas hematoma, I do not think that represents malignancy. There is a displaced fracture on the left and what appears to be a metastatic prostate cancer involving the hip. Since admission, his pain has been controlled when sitting still. He does have pain with changing the bed sanchez or any movement. He is eating well, he is afebrile, he is in good spirits. He is not aware of why he came to the hospital , where he is and does not have capacity to make decisions. PAST MEDICAL HISTORY: 1. Dementia 3 to 4 years. 2. Metastatic prostate cancer, followed on Lupron with diffuse stone disease. PAST SURGICAL HISTORY: None. FAMILY HISTORY: Unknown. SOCIAL HISTORY: Lifelong runner, held several records in the 5 mile and 1 mile in college. He has a close friend who is his primary support. No family. He used to do a lot of walking, does not own a car. REVIEW OF SYSTEMS: Pain with movement. No fevers or chills. No shortness of breath or chest pain. Otherwise, the patient is unable to give history. PHYSICAL EXAM: Temperature 99.5, BP 148/66, pulse rate 78, respirations 16, O2 sat 92%. HEENT: He has good dentition. No oral lesions, and oral mucosa is a little bit dry. Lungs: Clear to auscultation bilaterally. Heart: Appears irregular today. S1, S2. No murmurs, rubs, or gallops. Abdomen: Nontender, nondistended with good bowel sounds. : He is incontinent. He has rotation of his left leg. He has trace edema bilaterally. Good pulses noted bilaterally , warm to the touch. Neurologic: Unable to answer basic questions, not aware of where he is, time, or why he is here. He does respond to questions verbally. DIAGNOSTIC STUDIES/LAB DATA: Labs: As noted per HPI. CT scan reviewed with Dr. Will. ASSESSMENT AND PLAN: An 88-year-old male with a history of dementia, metastatic prostate cancer and diffuse bony metastases. He had a brief response to Lupron, but now appears to have a rapid progression of his disease. Three weeks fell out of bed and then developed progressive pain in the hip. On admission to [facility] found to have a hematoma and hip fracture, both on left side. The hematoma may be from his fall. The hip fracture appears to be spontaneous and pathologic given reported negative x-ray 7 to 10 days ago. At this point, his level of pain is unacceptable given difficulty with basic tasks such as changing his bed sanchez. Prognosis from his prostate cancer is limited, likely 6 months on average, baring additional complications of his hip fracture. Patient cannot make decisions. There have been extensive discussions with the healthcare proxy that whether not to manage conservatively or have a surgical repair of his fracture. Quality of life before this event was good. Case discussed with Dr. Will and with health care proxy. I would not recommend surgery for purpose of mobility. I would consider surgery if needed to control pain. Pain may improve over next few weeks with conservative management and he may gain some weight baring. 1. No surgery at this time and he is hospice appropriate. 2. Re-evaluate in 2-3 weeks, if pain with daily care, then re-consider surgery for pain control. 3. No additional care prostate cancer, either Casodex or Lupron. [id number]/[facility] #: [id number] [place]
[2019-07-11] MEDS: Mirtazapine TAB* 15 MG PO SCH (21:23)
[2019-07-11] MEDS: Melatonin 3 MG TAB PO SCH (21:23)
[2019-07-11] MEDS: OLANzapine TAB* 5 MG PO SCH (21:23)
[2019-07-12] MEDS: Heparin VIAL(*) 5000 UNITS/ML VIAL (FIVE THOUSAND) SUBCUT SCH ×3 (06:07→21:58)
[2019-07-12] MEDS: Escitalopram * 5 MG TAB PO SCH (09:38)
[2019-07-12] MEDS: BICALUTAMIDE 50 MG PO SCH (09:38)
[2019-07-12] MEDS: Docusate CAP* 100 MG PO SCH (09:43)
[2019-07-12] MEDS: Acetaminophen TAB* 325 MG PO PRN ×2 (14:58→20:40)
--- NOTE | 2019-07-12 17:14 | PN ---
Subjective Date of Service: 07/12/19 Interval History: HD 4 on 07/12 Overnight: Incontinent to urine and stool Vitals: stable on 2L OF OXYGEN Patient is confused. On pureed diet. Appreciate oncology input- will not need surgery for now; can re-assess again in 2-3 weeks if pain persists. Overall prognosis poor. Hospice care. waiting for bed. Objective Active Medications: Acetaminophen (Tylenol Tab*) 650 mg PO Q4H PRN PRN Reason: PAIN Last Admin: 07/12/19 14:58 Dose: 650 mg Bicalutamide (Casodex (Nf)) 50 mg PO DAILY [facility]; Protocol Last Admin: 07/12/19 09:38 Dose: 50 mg Docusate Sodium (Colace Cap*) 100 mg PO DAILY [facility] Last Admin: 07/12/19 09:43 Dose: Not Given Escitalopram Oxalate (Lexapro *) 5 mg PO DAILY [facility]; Protocol Last Admin: 07/12/19 09:38 Dose: 5 mg Heparin Sodium (Porcine) (Heparin Vial(*)) 5,000 units SUBCUT Q8HR [facility] Last Admin: 07/12/19 14:58 Dose: 5,000 units Melatonin (Melatonin) 3 mg PO BEDTIME [facility] Last Admin: 07/11/19 21:23 Dose: 3 mg Mirtazapine (Remeron Tab*) 30 mg PO BEDTIME [facility] Last Admin: 07/11/19 21:23 Dose: 30 mg Olanzapine (Zyprexa Tab*) 5 mg PO BEDTIME [facility] Last Admin: 07/11/19 21:23 Dose: 5 mg Oxycodone/Acetaminophen (Percocet 5/325 Tab*) 1 tab PO Q4H PRN PRN Reason: PAIN - MODERATE Last Admin: 07/12/19 09:38 Dose: 1 tab Oxycodone/Acetaminophen (Percocet 5/325 Tab*) 2 tab PO Q4H PRN PRN Reason: PAIN - SEVERE Last Admin: 07/11/19 16:02 Dose: 2 tab Polyethylene Glycol/Electrolytes (Miralax (17 Gm Dose Charlie)) 17 gm PO DAILY PRN PRN Reason: CONSTIPATION Last Admin: 07/10/19 21:04 Dose: 17 gm Senna (Senokot 8.6 Mg Tab*) 1 tab PO DAILY PRN PRN Reason: CONSTIPATION Vital Signs - 8 hr 07/12/19 07/12/19 07/12/19 09:38 11:10 13:21 Temperature 99.2 F Pulse Rate 77 Respiratory 18 16 18 Rate Blood Pressure 102/47 (mmHg) O2 Sat by Pulse 87 Oximetry 07/12/19 07/12/19 15:43 15:56 Temperature 98.4 F Pulse Rate 52 Respiratory 16 Rate Blood Pressure 110/47 (mmHg) O2 Sat by Pulse 94 94 Oximetry Oxygen Devices in Use Now: Nasal Cannula Exam: General - NAD, sitting up in bed Eyes - PERRLA, EOM intact HEENT- no abnormality Cardiovascular - RRR no m/r/g, no JVD, no carotid bruits Lungs - Clear to auscltation, no use of acessory muscles, no crackles or wheezes. Skin - No rashes, skin warm and dry, no erythematous areas Abdomen - Normal bowel sounds, abdomen soft and nontender Extremities - No edema, cyanosis or clubbing Neurological Alert and oriented to self only Result Diagrams: 07/10/19 06:00 07/10/19 06:00 Assess/Plan/Problems-Billing Assessment: Whit Bowers is a 88yo male [place] resident with history of progressive prostate cancer, dementia, schizoid personality disorder, anxiety, presented with left LL for 10/05, found to have left hip pathological fracture likely due to metastatic prostate cancer. Now on comfort care. - Patient Problems (1) Hip fracture, pathological Current Visit: Yes Status: Acute Code(s): M84.459A - PATHOLOGICAL FRACTURE, HIP, UNSP, INIT ENCNTR FOR FRACTURE SNOMED Code(s): 007470237 Comment: - left hip pathological fracture due to metastatic prostate cancer - appreciate surgical team input, family decided not for surgery. -no surgery for now- can consider for pain in 2-3 weeks if pain persists - pain well-controlled with oxycodone for now -appreciate oncology input (2) Prostate cancer Current Visit: Yes Status: Acute Code(s): C61 - MALIGNANT NEOPLASM OF PROSTATE SNOMED Code(s): 832445489 Comment: - progressive prostate cancer with increasing PSA and bone mets - likely metastatic cancer- infiltrates on left ilopsoas seen on imaging - patient is not a good candidate for surgeries or chemos. he is already on Bicalutamide which is a hormone therapy. -comfort care (3) Dementia Current Visit: Yes Status: Acute Code(s): F03.90 - UNSPECIFIED DEMENTIA WITHOUT BEHAVIORAL DISTURBANCE SNOMED Code(s): 01735548 Comment: - stable. continue to monitor (4) Need for comfort care Current Visit: Yes Status: Acute Code(s): UCD6607 - SNOMED Code(s): 622242125 Comment: -Currently in comfort care. (5) Anxiety Current Visit: Yes Status: Acute Code(s): F41.9 - ANXIETY DISORDER, UNSPECIFIED SNOMED Code(s): 85547715 Comment: - on escitalopram and olanzapine (6) DNR (do not resuscitate) Current Visit: Yes Status: Acute Status and Disposition: Inpatient Medicine. palliative care following patient will need SNF with hospice care- waiting bed Attending: Malissa Webb Attestation Documenting Resident: Yolanda Chaudhary Supervising Physician: Malissa Webb Attending/Supervising Physician Comment: Agree with resident note and findings Awaiting SNF with hospice care, denied from [place], other options being looked into. Attestation: This service has been performed in part by a resident under the direction of a teaching physician.I, Malissa Webb, performed the service, or was physically present during the critical, or [place] portions of the service, furnished by the resident. I participated in the management of the patient.
[2019-07-12] MEDS: Melatonin 3 MG TAB PO SCH (20:41)
[2019-07-12] MEDS: OLANzapine TAB* 5 MG PO SCH (20:41)
[2019-07-12] MEDS: Mirtazapine TAB* 15 MG PO SCH (20:42)
[2019-07-13] MEDS: Acetaminophen TAB* 325 MG PO PRN ×2 (05:49→19:30)
[2019-07-13] MEDS: Heparin VIAL(*) 5000 UNITS/ML VIAL (FIVE THOUSAND) SUBCUT SCH (05:49)
[2019-07-13] MEDS: Escitalopram * 5 MG TAB PO SCH (08:30)
[2019-07-13] MEDS: Docusate CAP* 100 MG PO SCH (08:30)
[2019-07-13] MEDS: BICALUTAMIDE 50 MG PO SCH (08:30)
--- NOTE | 2019-07-13 11:49 | PN ---
Subjective Date of Service: 07/13/19 Interval History: HD 5 on 07/13 Overnight: Incontinent to urine and stool Vitals: stable Patient denies pain and is having bowel movement. He is alert and oriented but forgettable. Waiting for bed approval with hospice care. Objective Active Medications: Acetaminophen (Tylenol Tab*) 650 mg PO Q4H PRN PRN Reason: PAIN Last Admin: 07/13/19 05:49 Dose: 650 mg Bicalutamide (Casodex (Nf)) 50 mg PO DAILY [facility]; Protocol Last Admin: 07/13/19 08:30 Dose: 50 mg Docusate Sodium (Colace Cap*) 100 mg PO DAILY [facility] Last Admin: 07/13/19 08:30 Dose: 100 mg Escitalopram Oxalate (Lexapro *) 5 mg PO DAILY [facility]; Protocol Last Admin: 07/13/19 08:30 Dose: 5 mg Heparin Sodium (Porcine) (Heparin Vial(*)) 5,000 units SUBCUT Q8HR [facility] Last Admin: 07/13/19 05:49 Dose: 5,000 units Melatonin (Melatonin) 3 mg PO BEDTIME [facility] Last Admin: 07/12/19 20:41 Dose: 3 mg Mirtazapine (Remeron Tab*) 30 mg PO BEDTIME [facility] Last Admin: 07/12/19 20:42 Dose: 30 mg Olanzapine (Zyprexa Tab*) 5 mg PO BEDTIME [facility] Last Admin: 07/12/19 20:41 Dose: 5 mg Oxycodone/Acetaminophen (Percocet 5/325 Tab*) 1 tab PO Q4H PRN PRN Reason: PAIN - MODERATE Last Admin: 07/12/19 09:38 Dose: 1 tab Oxycodone/Acetaminophen (Percocet 5/325 Tab*) 2 tab PO Q4H PRN PRN Reason: PAIN - SEVERE Last Admin: 07/11/19 16:02 Dose: 2 tab Polyethylene Glycol/Electrolytes (Miralax (17 Gm Dose Charlie)) 17 gm PO DAILY PRN PRN Reason: CONSTIPATION Last Admin: 07/10/19 21:04 Dose: 17 gm Senna (Senokot 8.6 Mg Tab*) 1 tab PO DAILY PRN PRN Reason: CONSTIPATION Vital Signs - 8 hr 07/13/19 07/13/19 07/13/19 04:09 04:10 08:00 Temperature 98.4 F Pulse Rate 72 Respiratory 16 20 Rate Blood Pressure 118/51 (mmHg) O2 Sat by Pulse 95 95 96 Oximetry 07/13/19 07/13/19 07/13/19 08:04 10:22 11:42 Temperature 99.2 F 97.5 F Pulse Rate 72 75 Respiratory 16 16 Rate Blood Pressure 121/59 112/51 (mmHg) O2 Sat by Pulse 96 96 94 Oximetry Oxygen Devices in Use Now: Nasal Cannula Exam: General - NAD, sitting up in bed Eyes - PERRLA, EOM intact HEENT- no abnormality Cardiovascular - RRR no m/r/g, no JVD, no carotid bruits Lungs - Clear to auscltation, no use of acessory muscles, no crackles or wheezes. Skin - No rashes, skin warm and dry, no erythematous areas Abdomen - Normal bowel sounds, abdomen soft and nontender Extremities - No edema, cyanosis or clubbing Neurological Alert and oriented to self only Result Diagrams: 07/10/19 06:00 07/10/19 06:00 Assess/Plan/Problems-Billing Assessment: Whit Bowers is a 88yo male [place] resident with history of progressive prostate cancer, dementia, schizoid personality disorder, anxiety, presented with left LL for 10/05, found to have left hip pathological fracture likely due to metastatic prostate cancer. Now on comfort care. - Patient Problems (1) Hip fracture, pathological Current Visit: Yes Status: Acute Code(s): M84.459A - PATHOLOGICAL FRACTURE, HIP, UNSP, INIT ENCNTR FOR FRACTURE SNOMED Code(s): 517827857 Comment: - left hip pathological fracture due to metastatic prostate cancer - appreciate surgical team input, family decided not for surgery. -no surgery for now- can consider for pain in 2-3 weeks if pain persists - pain well-controlled with oxycodone for now -appreciate oncology input (2) Prostate cancer Current Visit: Yes Status: Acute Code(s): C61 - MALIGNANT NEOPLASM OF PROSTATE SNOMED Code(s): 387766527 Comment: - progressive prostate cancer with increasing PSA and bone mets - likely metastatic cancer- infiltrates on left ilopsoas seen on imaging - patient is not a good candidate for surgeries or chemos. he is already on Bicalutamide which is a hormone therapy. -comfort care (3) Dementia Current Visit: Yes Status: Acute Code(s): F03.90 - UNSPECIFIED DEMENTIA WITHOUT BEHAVIORAL DISTURBANCE SNOMED Code(s): 39569134 Comment: - stable. continue to monitor (4) Need for comfort care Current Visit: Yes Status: Acute Code(s): FFE5332 - SNOMED Code(s): 887601159 Comment: -Currently in comfort care. (5) Anxiety Current Visit: Yes Status: Acute Code(s): F41.9 - ANXIETY DISORDER, UNSPECIFIED SNOMED Code(s): 08947752 Comment: - on escitalopram and olanzapine (6) DNR (do not resuscitate) Current Visit: Yes Status: Acute Comment: comfort care Status and Disposition: Inpatient Medicine. palliative care following patient will need SNF with hospice care- waiting bed Attending: Malissa Webb Attestation Documenting Resident: Yolanda Chaudhary Supervising Physician: Malissa Webb Attending/Supervising Physician Comment: Agree with resident note and findings Awaiting SNF with hospice care, has bed offers at other SNF, will prepare d/c awaiting HCP decision. Attestation: This service has been performed in part by a resident under the direction of a teaching physician.I, Malissa Webb, performed the service, or was physically present during the critical, or [place] portions of the service, furnished by the resident. I participated in the management of the patient.
--- NOTE | 2019-07-13 15:38 | DS ---
CC: Dr. Yaritza Casillas * DISCHARGE SUMMARY: DATE OF ADMISSION: 07/09/19 DATE OF ANTICIPATED DISCHARGE: 07/14/19 PRIMARY CARE PROVIDER: Dr. Yaritza Casillas. DISPOSITION AT THE TIME OF DISCHARGE: Stable to be discharged to detention with hospice care. PRIMARY DIAGNOSIS: Left hip pathological fracture secondary to metastatic prostate cancer. SECONDARY DIAGNOSES: 1. Advanced progressive prostate cancer. 2. Dementia. 3. Schizoid personality disorder. 4. Anxiety. MEDICATIONS AT THE TIME OF DISCHARGE: 1. Acetaminophen 650 mg p.o. q.4 hours p.r.n. 2. Escitalopram 5 mg p.o. daily. 3. Melatonin 3 mg p.o. q.h.s. 4. Mirtazapine 30 mg p.o. q.h.s. 5. Olanzapine 5 mg p.o. q.h.s. 6. Oxycodone 2 tabs p.o. q.4 hours p.r.n. 7. Polyethylene glycol 17 g p.o. daily p.r.n. if no bowel movement daily. 8. Senna tab 8.6 mg 1 tab p.o. daily. Medication changes on this hospitalization were: 1. The addition of oxycodone, polyethylene glycol, and senna. 2. Discontinuation of bicalutamide. CONSULTANTS DURING THIS HOSPITALIZATION: Included Palliative Care with hospice provider relations representative, Orthopedics. HISTORY OF PRESENT ILLNESS AND HOSPITAL COURSE: An 88-year-old male with above past medical history who is domiciled in [place], who has healthcare proxy who makes decision for him as he is oriented to self at baseline, who presented after a mechanical fall and was found to have left hip fracture. After further investigation within the emergency room, pelvis CT was done given he has had advancing prostate cancer no longer responsive to outpatient therapy. The pelvic CT showed that it was likely a pathologic left subcapital femoral neck fracture and that there was a mass within the left iliopsoas muscle concerning for tumor. Given his advanced prostate cancer and his left hip fracture, the hospitalist team was asked to admit the patient. His hospital course by problem is as follows: 1. Left hip pathologic fracture in the setting of advancing metastatic prostate cancer with metastases to the bone. Ortho did feel that there was a place for palliative approach in repairing this fracture. Although with careful discussions with healthcare proxy, primary care provider, palliative and primary teams, overall the family felt that the risk of operative repair of left hip fracture and potential damage on his mental status was too great and elected for a nonoperative approach to the patient's left hip fracture, which changes his prior ambulatory status to bedbound. Given this, he also needed a shift in his half-way needs and placement in a half-way facility, which was coordinated by care management and hospice. The patient will go with hospice management and Oncology was brought on board to determine prognosis, which they felt was closer to 6 months. Luckily, left hip fracture is causing the patient no pain. He is comfortable, tolerating diet, voiding freely, and aware of his advancing metastatic prostate cancer. 2. Metastatic prostate cancer. As per above with mets to bone and possibly local invasion into iliopsoas muscle on the left. Oncology was consulted, who made a rough prognosis of 6 months. He meets criteria to be enrolled in hospice at half-way facility and after discussions as per above, the healthcare proxy, primary care provider and palliative care feel that this is the most reasonable approach to managing his left hip fracture. 3. Dementia. The patient is oriented to self at baseline without any behavioral disturbances. 4. Anxiety and schizoid personality disorder. He has been stable on home psych medications, which can be continued. On the day of discharge, the patient is bedbound which is his new baseline status, he can be Lisa lifted to chair, and pain-free. He is tolerating a pureed diet, voiding freely. At baseline, he is oriented to self and is very pleasant without any behavioral disturbances. His level of activity is noted to be bedbound, nonweightbearing on the left. If the patient develops pain in the left hip or his status changes, Orthopedics is happy to re-consult and offer palliative approach to fracture repair, though because it is secondary to metastases to the bone, they cannot guarantee that re-fracture on either hip is quite possibly very likely. LABS AND STUDIES DONE DURING THIS HOSPITALIZATION: On 07/10/19: White blood cell count 8.4, hemoglobin 8.6, hematocrit 25, and platelets 141. On 07/10/19, BMP: Sodium 137, potassium 3.4, chloride 105, carbon dioxide 24, anion gap 8, BUN 22, creatinine 0.82. Alk phos is 2877, AST is 56, ALT is 22. UA was done, which showed 1+ white blood cells and red blood cells, although urine culture showed no growth of clinically significant organisms. Imaging included a hip and pelvis x-ray on 07/09/19, which showed left hip transverse, displaced, angulated fracture of the femoral neck. Pelvis CT was done on 07/09/19 that showed metastatic prostate cancer to bone, 8.8 x 5.3 mass in iliopsoas which represents possible tumor, and a displaced angulated pathologic left subcapital femoral neck fracture. Chest x-ray shows no acute intrathoracic pathology. On 07/11/19, an EKG shows normal sinus rhythm with no signs of acute ischemia. Transthoracic echocardiogram performed on 07/10/19 shows ejection fraction of 60 % to 65%, grade 1 diastolic dysfunction, and no significant valvular disease. ITEMS TO FOLLOW UP ON STATUS POST DISCHARGE: 1. The patient's new functional status has shifted from being ambulatory to bedbound and nonweightbearing on the left. He is allowed to be Lisa lifted from bed to chair at his comfort. 2. Diet: The patient tolerates a pureed diet at this baseline. Secondary to his mental status, this is continued. 3. Comfort care: The patient is on full hospice with do not hospitalize as his wishes and healthcare proxy is his primary contact. They plan for hospice intake at [facility] and referral has been placed and generated within this hospitalization. The patient's pain is well tolerated with low dose of oxycodone and in fact has been with minimal pain throughout this process. TIME SPENT: Forty-five minutes was spent on the planning of this discharge with over half of that was spent directly at the bedside of the patient providing direct patient care and coordinating care. Plan of care was discussed with the patient's healthcare proxy, who has no further questions. If there are any questions about the care of this patient during this hospitalization, please do not hesitate to reach out and contact me directly, my cellphone is [phone]. [id number]/[facility] #: [id number] [place]
[2019-07-13] MEDS ORDERED: oxyCODONE TAB* 5 MG TAB PO PRN (16:03)
[2019-07-13] MEDS: Mirtazapine TAB* 15 MG PO SCH (19:30)
[2019-07-13] MEDS: Melatonin 3 MG TAB PO SCH (19:30)
[2019-07-13] MEDS: OLANzapine TAB* 5 MG PO SCH (19:30)
[2019-07-14] MEDS: Acetaminophen TAB* 325 MG PO PRN ×2 (05:56→09:48)
[2019-07-14] MEDS: Docusate CAP* 100 MG PO SCH (09:48)
[2019-07-14] MEDS: Escitalopram * 5 MG TAB PO SCH (09:48)
[2019-07-14 10:05] VITALS: BP 122/59
--- NOTE | 2019-07-14 11:59 | PN ---
Progress Note - Progress Note Date of Service: 07/14/19 SOAP: Subjective: []Pt seen at bedside, he has L hip pain, he cannot quantify. No other complaints. Objective: []Gen: NAD, laying comfortably in bed LLE: tender over lateral hip. thigh soft. df/pf intact, dp2+, sensation intact to light touch distally Calves supple and nontender Assessment: []left femoral neck fracture Plan: []NWB LLE Pt and family have elect non-op tx. Will sign off for now, please contact ortho with any questions as well as if pt has severe pain/ not tolerating nonop tx Vital Signs Temp 98.2 F 07/14/19 10:04 Pulse 76 07/14/19 10:04 Resp 17 07/14/19 10:04 BP 122/59 07/14/19 10:04 Pulse Ox 94 07/14/19 10:04 Intake & Output 07/13/19 07/14/19 07/14/19 18:59 06:59 18:59 Intake Total 1320 570 Output Total 350 370 Balance 970 200 Intake: Oral 1320 570 Output: Urine 150 370 Barker 200 Other: Estimated Void Small # Bowel Movements 1 1 Estimated Stool Amount Small Small Laboratory Last Values WBC 8.4 10^3/uL (3.5-10.8) 07/10/19 06:00 RBC 2.65 10^6 /uL (4.18-5.48) L 07/10/19 06:00 Hgb 8.6 g/dL (14.0-18.0) L 07/10/19 06:00 Hct 25 % (42-52) L 07/10/19 06:00 MCV 93 fL (80-94) 07/10/19 06:00 MCH 32 pg (27-31) H 07/10/19 06:00 MCHC 35 g/dL (31-36) 07/10/19 06:00 RDW 20 % (10-15) H 07/10/19 06:00 Plt Count 141 10^3/uL (150-450) L 07/10/19 06:00 MPV 6.9 fL (7.4-10.4) L 07/10/19 06:00 Neut % (Auto) 79.0 % 07/10/19 06:00 Lymph % (Auto) 12.3 % 07/10/19 06:00 [place] % (Auto) 7.9 % 07/10/19 06:00 Eos % (Auto) 0.5 % 07/10/19 06:00 Baso % (Auto) 0.3 % 07/10/19 06:00 Absolute Neuts (auto) 6.7 10^3/ul (1.5-7.7) 07/10/19 06:00 Absolute Lymphs (auto) 1.0 10^3/ul (1.0-4.8) 07/10/19 06:00 Absolute Monos (auto) 0.7 10^3/ul (0-0.8) 07/10/19 06:00 Absolute Eos (auto) 0.0 10^3/ul (0-0.6) 07/10/19 06:00 Absolute Basos (auto) 0.0 10^3/ul (0-0.2) 07/10/19 06:00 Absolute Nucleated RBC 0.0 10^3/ul 07/10/19 06:00 Nucleated RBC % 0.1 07/10/19 06:00 Polychromasia 2+ 07/09/19 10:35 Anisocytosis 1+ 07/09/19 10:35 ESR 70 mm/Hr (0-19) H 07/09/19 10:35 Sodium 137 mmol/L (135-145) 07/10/19 06:00 Potassium 3.4 mmol/L (3.5-5.0) L 07/10/19 06:00 Chloride 105 mmol/L (101-111) 07/10/19 06:00 Carbon Dioxide 24 mmol/L (22-32) 07/10/19 06:00 Anion Gap 8 mmol/L (2-11) 07/10/19 06:00 BUN 22 mg/dL (6-24) 07/10/19 06:00 Creatinine 0.82 mg/dL (0.67-1.17) 07/10/19 06:00 Est GFR ( Amer) 107.0 (>60) 07/10/19 06:00 Est GFR (Non-Af Amer) 88.5 (>60) 07/10/19 06:00 BUN/Creatinine Ratio 26.8 (8-20) H 07/10/19 06:00 Glucose 124 mg/dL (70-100) H 07/10/19 06:00 Lactic Acid 0.8 mmol/L (0.5-2.0) 07/10/19 09:00 Calcium 8.3 mg/dL (8.6-10.3) L 07/10/19 06:00 Iron 33 ug/dL (50-212) L 07/10/19 06:00 TIBC 307 mcg/dL (250-450) 07/10/19 06:00 % Saturation 11 % (15-55) L 07/10/19 06:00 Unsat Iron Binding < 292 ug/dL 07/10/19 06:00 Transferrin 219 mg/dL (203-362) 07/10/19 06:00 Ferritin 863.9 ng/mL (24-336) H 07/10/19 06:00 Total Bilirubin 0.80 mg/dL (0.2-1.0) 07/09/19 10:35 AST 56 U/L (13-39) H 07/09/19 10:35 ALT 22 U/L (7-52) 07/09/19 10:35 Alkaline Phosphatase 2877 U/L (34-104) H 07/09/19 10:35 C-Reactive Protein 100.59 mg/L (<8.01) H 07/09/19 10:35 B-Natriuretic Peptide 483 pg/mL (<=100) H 07/09/19 10:35 Total Protein 6.3 g/dL (6.4-8.9) L 07/09/19 10:35 Albumin 3.8 g/dL (3.2-5.2) 07/09/19 10:35 Globulin 2.5 g/dL (2-4) 07/09/19 10:35 Albumin/Globulin Ratio 1.5 (1-3) 07/09/19 10:35 Urine Color Steffanie 07/10/19 11:35 Urine Appearance Turbid 07/10/19 11:35 Urine pH 5.0 (5-9) 07/10/19 11:35 Ur Specific [place] 1.018 (1.010-1.030) 07/10/19 11:35 Urine Protein Negative (Negative) 07/10/19 11:35 Urine Ketones Negative (Negative) 07/10/19 11:35 Urine Blood 2+ (Negative) A 07/10/19 11:35 Urine Nitrate Negative (Negative) 07/10/19 11:35 Urine Bilirubin Negative (Negative) 07/10/19 11:35 Urine Urobilinogen Negative (Negative) 07/10/19 11:35 Ur Leukocyte Esterase Negative (Negative) 07/10/19 11:35 Urine WBC (Auto) 1+(6-10/hpf) (Absent) A 07/10/19 11:35 Urine RBC (Auto) 2+(6-10/hpf) (Absent) A 07/10/19 11:35 Ur Squamous Epith Cells Present (Absent) A 07/10/19 11:35 Calcium Oxalate Crystal Present (Absent) A 07/10/19 11:35 Urine Bacteria Absent (Absent) 07/10/19 11:35 Urine Glucose Negative (Negative) 07/10/19 11:35 Urine Ascorbic Acid * (Negative) A 07/10/19 11:35
== END 2019-07-14 10:35 | DRG 543 ==
LOC: ED 10:14 → SSU 12:29
PROVIDERS: ADMIT Internal Medicine; ATTEND Internal Medicine
DX: M84.559A Pathological fracture in neoplastic disease, hip, unspecified, initial encounter for fracture (principal); C79.51 Secondary malignant neoplasm of bone; E87.2 Acidosis; C61 Malignant neoplasm of prostate; F03.90 Unspecified dementia, unspecified severity, without behavioral disturbance, psychotic disturbance, mood disturbance, and anxiety; F60.1 Schizoid personality disorder; S70.12XA Contusion of left thigh, initial encounter; F41.1 Generalized anxiety disorder; E53.9 Vitamin B deficiency, unspecified; G47.00 Insomnia, unspecified; Z66 Do not resuscitate; E86.0 Dehydration; D64.9 Anemia, unspecified; Z51.5 Encounter for palliative care; W06.XXXA Fall from bed, initial encounter; Y92.099 Unspecified place in other non-institutional residence as the place of occurrence of the external cause; Z79.899 Other long term (current) drug therapy
CPT/HCPCS: 36415; 71045; 72192; 80048; 80053; 81003; 81015; 82728; 83540; 83550; 83605; 83880; 85025; 85652; 86140; 87086; 93005; 93306; 99223; 99284; A9270-GY; J1644